=== PATIENT | female | born 1980 | race Caucasian/White ===

== ENCOUNTER 2018-12-27 08:07 | Day surgery (SDC) | payer MEDICAID ==
[~2018-12-27 08:07] MED LIST: Lactated Ringers 1,000 ML IV SCH; Lidocaine 1%/Sod Bicarbonate in NS 8.4% 1 ML Syringe IDERM PRN; Sodium Chloride 0.9% 10 ML Syringe FLUSH PRN
--- NOTE | 2018-12-27 08:39 | PCM.PREANE ---
Preanesthetic Assessment - Procedure Proposed Procedure: removal of hardware left foot - Anesthesia/Transfusion/Family Hx Anesthesia History: Prior Anesthesia Without Reaction Family History of Anesthesia Reaction: No Transfusion History: No Prior Transfusion(s) - Review of Systems General: No Symptoms Pulmonary: No Symptoms Cardiovascular: No Symptoms Gastrointestinal: No Symptoms Neurological: Seizure (none for a year) Other: Reports: Diabetes - Physical Assessment NPO Status Date: 12/26/18 NPO Status Time: 23:50 Pulse: 81 O2 Sat by Pulse Oximetry: 95 Respiratory Rate: 16 Blood Pressure: 157/89 Temperature: 96.8 F Height: 5 ft 6 in Weight: 124 kg ASA Class: 2 Mental Status: Alert & Oriented x3 Airway Class: Mallampati = 1 Dentition: Reports: Dentures (upper) Thyro-Mental Finger Breadths: 3 Mouth Opening Finger Breadths: 3 ROM/Head Extension: Full Lungs: Clear to Auscultation, Normal Respiratory Effort Cardiovascular: Regular Rate, Regular Rhythm - Allergies Allergies/Adverse Reactions: Allergies Allergy/AdvReac Type Severity Reaction Status Date / Time bee venom protein (honey bee) Allergy Cannot Verified 12/26/18 14:02 Remember ibuprofen Allergy Cannot Verified 12/26/18 14:02 [From DayQuil Sinus Remember Pressure/Pain] pseudoephedrine Allergy Cannot Verified 12/26/18 14:02 [From DayQuil Sinus Remember Pressure/Pain] - Blood Blood Available: No - Acknowledgements Anesthesia Type Planned: MAC Pt an Appropriate Candidate for the Planned Anesthesia: Yes Alternatives and Risks of Anesthesia Discussed w Pt/Guardian: Yes Pt/Guardian Understands and Agrees with Anesthesia Plan: Yes PreAnesthesia Questionnaire HEENT History: Reports: Allergic Rhinitis, Other (See Below) Other HEENT History: has dentures Cardiovascular History: Reports: None Respiratory History: Reports: Asthma (has not had problems in over 5 years- no inhaler use), Other (See Below) Other Respiratory History: pleural effusion Gastrointestinal History: Reports: None PHARMACY CLINICAL SPECIALIST History: Reports: Other (See Below) Other OB/BYN History: vaginosis, adenomyosis, endometriosis, nipple discharge Musculoskeletal History: Reports: Other (See Below) Other Musculoskeletal History: degenerative disc disease Neurological History: Reports: Migraines, Seizure Psychiatric History: Reports: Addiction, Depression Endocrine/Metabolic History: Reports: Diabetes, Type II Hematologic History: Reports: None Immunologic History: Reports: None Oncologic (Cancer) History: Reports: None - Past Surgical History Head Surgeries/Procedures: Reports: None HEENT Surgical History: Reports: Tonsillectomy Cardiovascular Surgical History: Reports: None Respiratory Surgical History: Reports: None GI Surgical History: Reports: Colonoscopy Female Surgical History: Reports: Hysterectomy, Oophorectomy Endocrine Surgical History: Reports: None Neurological Surgical History: Reports: None Musculoskeletal Surgical History: Reports: Other (See Below) Other Musculoskeletal Surgeries/Procedures:: , bilateral foot surgery Oncologic Surgical History: Reports: None - SUBSTANCE USE Smoking Status *Q: Former Smoker Tobacco Use Within Last Twelve Months: Cigarettes, Other (See Below) (quit vaping in october 2018) Second Hand Smoke Exposure: No Days Per Week of Alcohol Use: 1 (seldom) Recreational Drug Use History: Yes Recreational Drug Type: Reports: Marijuana/Hashish (3 weeks ago) - HOME MEDS Home Medications: Home Meds Estrogens, Conjugated [Premarin] 1.25 mg PO DAILY 12/26/18 [History] metFORMIN HCl [Metformin HCl] 1,000 mg PO BID 12/26/18 [History] - CURRENT (IN HOUSE) MEDS Current Meds: Current Medications Lactated Ringer's (Ringers, Lactated) 1,000 mls @ 125 mls/hr IV ASDIRECTED KIM Stop: 12/27/18 23:00 Lidocaine/Sodium Bicarbonate (Buffered Lidocaine 1% In Ns 8.4%) 0.25 ml IDERM ONETIME PRN PRN Reason: Prior to IV Start Stop: 12/27/18 18:00 Sodium Chloride (Saline Flush) 10 ml FLUSH ASDIRECTED PRN PRN Reason: Keep Vein Open Stop: 12/27/18 18:00
[2018-12-27] MEDS ORDERED: Propofol 200 MG/20 ML SDV ONE ×3 (08:46→11:16)
[2018-12-27] MEDS ORDERED: ceFAZolin 1 GM Vial ONE ×2 (08:47)
[2018-12-27] MEDS ORDERED: Lidocaine 1% 2 ML ONE ×2 (08:47)
[2018-12-27] MEDS ORDERED: Midazolam 1 MG/ML 2 ML SDV ONE ×2 (08:50→10:46)
[2018-12-27] MEDS ORDERED: fentaNYL 100 MCG/2 ML SDV ONE (08:51)
[2018-12-27] MEDS ORDERED: Bupivacaine 0.5% 30 ML SDV ONE (09:42)
[2018-12-27] MEDS ORDERED: Lidocaine 1% 30 ML SDV ONE (09:42)
[2018-12-27] MEDS ORDERED: Ketorolac 30 MG/ML SDV ONE (11:21)
--- NOTE | 2018-12-27 11:40 | PCM.OPNOTE ---
- General Post-Op/Procedure Note Date of Surgery/Procedure: 12/27/18 Operative Procedure(s): Removal of Retained Orthopedic Hardware, screws, LEFT heel Pre Op Diagnosis: Painful/Symptomatic Retained Orthopedic Hardware, LEFT heel Post-Op Diagnosis: Same Anesthesia Technique: Local, MAC Primary Surgeon: Chuck Lopez II Anesthesia Provider: Madison Trevizo Complications: None Condition: Good Free Text/Narrative:: Patient left the OR for recovery with vital signs stable & vascular status intact to digits 1-5 LEFT foot/ankle.
--- NOTE | 2018-12-27 11:42 | PCM48HPAN ---
Post Anesthesia Note - EVALUATION WITHIN 48HRS OF ANESTHETIC Vital Signs in Normal Range: Yes Patient Participated in Evaluation: Yes Respiratory Function Stable: Yes Airway Patent: Yes Cardiovascular Function Stable: Yes Hydration Status Stable: Yes Pain Control Satisfactory: Yes Nausea and Vomiting Control Satisfactory: Yes Mental Status Recovered: Yes Pulse Rate: 94 SaO2: 94 Resp Rate: 17 Temperature: 36.0 C Blood Pressure: 108/49 Pulse Rate: 94
--- NOTE | 2018-12-27 12:23 | CR ---
Left ankle: Single mortise view of the left ankle was obtained utilizing C-arm device. Comparison: No previous study. Ankle mortise is symmetric. No opaque hardware or other abnormality is seen. Fluoroscopy time given as 1.1 seconds. Impression: 1. Findings as noted above. Diagnostic code #1
--- NOTE | 2018-12-27 17:46 | OR ---
DATE OF OPERATION: 12/27/2018 SURGEON: Chuck Lopez II, DPM LOCATION: [facility]. ANESTHESIA: MAC with local block about the left heel. ANESTHESIA PROVIDER: Madison Trevizo CRNA. HEMOSTASIS: Left pneumatic ankle tourniquet at 250 mmHg pressure for 20 minutes. PREOPERATIVE DIAGNOSIS: Painful symptomatic retained orthopedic hardware, left heel. POSTOPERATIVE DIAGNOSIS: Painful symptomatic retained orthopedic hardware, left heel. OPERATION PERFORMED: Removal of retained orthopedic hardware, screws, left heel. DESCRIPTION OF PROCEDURE: Upon arrival on admission to the hospital, the patient was examined and cleared for surgery by the assigned anesthesia provider. IV access was obtained in the preoperative area, after which the patient was given prophylactic antibiotics consisting of 3 g of Ancef IV piggyback. The patient was then brought to the OR via gurney and left on the gurney in the supine position. She was then, after being sedated, moved to a right lateral decubitus position. The patient was given a combination of sedations and then when adequately sedated received 10 mL of a 1:1 mixture of 1% lidocaine plain and 0.5% Marcaine plain in the form of local infiltrative block about the left heel. The left lower extremity was wrapped with cotton Webril padding above the ankle joint for a nonsterile pneumatic ankle tourniquet, which was then draped with a sterile drape. Left lower extremity was then prepped and draped in the usual aseptic manner. Left lower extremity was then elevated and exsanguinated with the use of an Esmarch bandage before inflating the left pneumatic ankle tourniquet to 250 mmHg pressure. The Esmarch bandage was removed and attention was then directed to the posterior inferolateral aspect of the left heel where there was previous incision site for screw placement for a calcaneal slide osteotomy. Another incision paralleling that of the skin was then created from dorsal to plantar, about the same area posterolateral aspect of the left heel. This was a controlled depth skin incision measuring approximately 3 cm and it was taken down to the level of the subcutaneous structures with care taken to retract all vital neurovascular structures within the area as well as cauterize or ligate all superficial bleeders as deemed necessary. Continuous soft tissue dissection was taken down to the level of the screw heads and a 6.0 mm Arthrex screw was utilized to back out 2 screws measuring 40 and 45 mm in length. The operative site was then x-rayed with intraoperative fluoroscopy and there were no further metallic objects or screws within her left heel. The wound was then copiously lavaged with sterile saline solution and a 3-0 Vicryl was utilized to close the subcuticular deep layer while 4-0 Prolene was utilized to close the skin. Postoperative anesthesia consisted of an additional 20 mL of 0.5% Marcaine plain. Dressings were then consisted of Betadine-soaked Adaptic gauze, 4 x 4 gauze, Dillan, Kerlix, and an Adiel bandage. Upon completion of the surgery, left pneumatic ankle tourniquet was deflated and it was noted that digits 1 through 5 of the left foot became pink indicating normal vascular perfusion return. The patient tolerated the procedure and anesthesia well and left the OR for recovery with vital signs being stable and vascular status intact to digits 1 through 5 of the left lower extremity with no apparent complications. In recovery, the patient received written and oral postop instructions with postoperative pain medication. The patient will ambulate partial weightbearing with an immobilization boot for her left foot and ankle. Estimated blood loss was this procedure was 5 mL and considered negligible. ESTIMATED BLOOD LOSS: [facility] /[id number]
== END 2018-12-27 12:54 | disposition home or self-care (01) ==
LOC: JD.SDS 08:07
PROVIDERS: ATTEND Podiatrist Foot & Ankle Surgery
DX: T84.84XA Pain due to internal orthopedic prosthetic devices, implants and grafts, initial encounter (principal); E11.9 Type 2 diabetes mellitus without complications; J45.909 Unspecified asthma, uncomplicated; E66.9 Obesity, unspecified; Z68.42 Body mass index [BMI] 45.0-49.9, adult; F41.9 Anxiety disorder, unspecified; F32.9 Major depressive disorder, single episode, unspecified; Z87.891 Personal history of nicotine dependence; Z79.84 Long term (current) use of oral hypoglycemic drugs; Z79.899 Other long term (current) drug therapy; Z88.8 Allergy status to other drugs, medicaments and biological substances; Z88.6 Allergy status to analgesic agent; Z91.030 Bee allergy status
CPT/HCPCS: 20680; 76000; 82962; J0690; J1885; J2001; J2250; J2704; J3010; J3490; J7120; 01480

== ENCOUNTER 2019-03-25 14:59 | Emergency (ER) | payer MEDICAID ==
--- NOTE | 2019-03-25 15:24 | EDM.PDOC ---
ED HPI GENERAL MEDICAL PROBLEM - General Chief Complaint: Lower Extremity Injury/Pain Stated Complaint: L FOOT INJURY Time Seen by Provider: 03/25/19 15:15 Source of Information: Reports: Patient History Limitations: Reports: No Limitations - History of Present Illness INITIAL COMMENTS - FREE TEXT/NARRATIVE: 38-year-old female presents to the ED complaining of left calcaneus and left ankle pain. Patient states while standing at work last night working at [employer] she felt a pop to the left heel and developed increasing pain to the left heel with weightbearing. She has a history of surgery to the calcaneus and foot requiring 2 plates 11 screws. She states this past November she had 2 screws removed from her heel. She been doing well up until yesterday. She utilizes crutches to ambulate into the ED today due to increasing pain to the heel with weightbearing. She denies any additional complaints. Left Feet Pain Score (Numeric/FACES): 8 - Related Data Allergies Allergy/AdvReac Type Severity Reaction Status Date / Time bee venom protein (honey bee) Allergy Cannot Verified 12/28/18 18:30 Remember ibuprofen Allergy Cannot Verified 12/28/18 18:30 [From DayQuil Sinus Remember Pressure/Pain] pseudoephedrine Allergy Cannot Verified 12/28/18 18:30 [From DayQuil Sinus Remember Pressure/Pain] Home Meds: Home Meds Estrogens, Conjugated [Premarin] 1.25 mg PO DAILY 12/26/18 [History] metFORMIN HCl [Metformin HCl] 1,000 mg PO BID 12/26/18 [History] Ibuprofen 1 tab PO QID PRN 12/28/18 [History] Past Medical History HEENT History: Reports: Allergic Rhinitis, Impaired Vision, Other (See Below) Other HEENT History: has dentures Cardiovascular History: Reports: None Respiratory History: Reports: Asthma, Other (See Below) Other Respiratory History: pleural effusion Gastrointestinal History: Reports: Chronic Diarrhea COAT JOINER History: Reports: Other (See Below) Other COAT JOINER History: vaginosis, adenomyosis, endometriosis, nipple discharge Musculoskeletal History: Reports: Other (See Below) Other Musculoskeletal History: degenerative disc disease Neurological History: Reports: Migraines, Seizure Psychiatric History: Reports: Addiction, Depression Endocrine/Metabolic History: Reports: Diabetes, Type II Hematologic History: Reports: None Immunologic History: Reports: None Oncologic (Cancer) History: Reports: None - Infectious Disease History Infectious Disease History: Reports: Chicken Pox, MRSA - Past Surgical History Head Surgeries/Procedures: Reports: None HEENT Surgical History: Reports: Oral Surgery, Tonsillectomy Cardiovascular Surgical History: Reports: None Respiratory Surgical History: Reports: None GI Surgical History: Reports: Colonoscopy Female Surgical History: Reports: Hysterectomy, Oophorectomy Endocrine Surgical History: Reports: None Neurological Surgical History: Reports: None Musculoskeletal Surgical History: Reports: Other (See Below) Other Musculoskeletal Surgeries/Procedures:: , bilateral foot surgery Oncologic Surgical History: Reports: None Social & Family History - Family History Family Medical History: Noncontributory - Caffeine Use Caffeine Use: Reports: Coffee, Energy Drinks Review of Systems - Review of Systems Review Of Systems: ROS reveals no pertinent complaints other than HPI. ED EXAM, GENERAL - Physical Exam Exam: See Below Exam Limited By: No Limitations General Appearance: Alert, WD/WN, No Apparent Distress Ears: Hearing Grossly Normal Nose: Normal Inspection Throat/Mouth: Normal Voice, No Airway Compromise Neck: Normal Inspection, Supple Respiratory/Chest: No Respiratory Distress, No Accessory Muscle Use Cardiovascular: Normal Peripheral Pulses, Regular Rate, Rhythm Peripheral Pulses: 2+: Posterior Tibial (L) Extremities: Normal Inspection, Other (Pinpoint tenderness to the left calcaneus and also to the inferior border of the left lateral malleolus. No pain along the metatarsals or phalanges. No pain along the tibia/fibula.) Neurological: Alert, Oriented, CN II-XII Intact, Normal Cognition, No Motor/ Sensory Deficits Psychiatric: Normal Affect, Normal Mood Skin Exam: Warm, Dry, Intact, Normal Color. No: Ecchymosis Course - Vital Signs Last Recorded V/S: Last Vital Signs Temp 96.9 F 03/25/19 15:17 Pulse 91 03/25/19 15:17 Resp 20 03/25/19 15:17 BP 152/99 H 03/25/19 15:17 Pulse Ox 100 03/25/19 15:17 - Orders/Labs/Meds Orders: Active Orders 24 hr Category Date Time Status Ankle Min 3V Lt [CR] Stat Exams 03/25/19 15:19 Taken Calcaneous Lt [CR] Stat Exams 03/25/19 15:19 Taken DME for Discharge [COMM] Stat Oth 03/25/19 15:20 Ordered - Re-Assessments/Exams Free Text/Narrative Re-Assessment/Exam: Will obtain x-rays of the left ankle and calcaneus. Xrays reviewed with no obvious acute bony abnormalities. Final interpretation is pending. Will discharge patient home with crutches and followup with Podiatry in the next 7 to 10 days. Return precautions were discussed with the patient. She had no further questions or concerns. Departure - Departure Time of Disposition: 16:39 Disposition: DC/Tfer to [facility] Condition: Good Clinical Impression: Calcaneal spur of left foot Ankle pain, left Qualifiers: Chronicity: acute Qualified Code(s): M25.572 - Pain in left ankle and joints of left foot - Discharge Information Instructions: Crutch Use, Adult, [id number], Heel Spur, Joint Pain, Easy-to- Read Referrals: Lou Mancilla PA-C [Primary Care Provider] - Chuck Lopez II, MIANM [Physician] - Forms: ED Department Discharge, ED Return to Work/School Form Additional Instructions: You're to be nonweightbearing toe-touch only for balance. Utilize crutches to ambulate. Elevate when able to reduce any swelling and pain. May apply ice to affected area 3-4 times a day, 20 minutes in duration, do not apply ice directly on the skin. Refrain from any activities that cause worsening discomfort. May utilize Tylenol since you are allergic ibuprofen. Call Dr. Lopez's office to schedule an appt to be evaluated in the next 7 to 10 days. Please return to the E. D. if you develop any new or worsening symptoms. - My Orders Last 24 Hours: My Active Orders 03/25/19 15:19 Ankle Min 3V Lt [CR] Stat Calcaneous Lt [CR] Stat 03/25/19 15:20 DME for Discharge [COMM] Stat - Assessment/Plan Last 24 Hours: My Active Orders 03/25/19 15:19 Ankle Min 3V Lt [CR] Stat Calcaneous Lt [CR] Stat 03/25/19 15:20 DME for Discharge [COMM] Stat
--- NOTE | 2019-03-26 12:13 | CR ---
Left calcaneus: Two views of the left calcaneus were obtained. Comparison: No previous study. Lucent line is seen within the calcaneus presumably from previous fracture. Finding could also represent previous surgery. This appears to be healed. Lucent tracts are seen crossing this lucent line compatible with old orthopedic hardware which has been removed. Small plantar spur is seen. Impression: 1. Incidental findings. Nothing acute is seen. Diagnostic code #2
--- NOTE | 2019-03-26 12:13 | CR ---
Left ankle: Four views of the left ankle were obtained. Comparison: No prior foot or ankle exam. Previous surgery is noted within the midfoot. Small plantar spur is seen. Old fracture with lucent tracks from previous orthopedic hardware are seen within the calcaneus. Ankle mortise is symmetric. No acute fracture or dislocation is seen. Impression: 1. Incidental findings. Nothing acute is appreciated. Diagnostic code #2
== END 2019-03-25 16:55 ==
LOC: JD.ED 14:59
DX: M77.32 Calcaneal spur, left foot (principal); J45.909 Unspecified asthma, uncomplicated; F32.9 Major depressive disorder, single episode, unspecified; E11.9 Type 2 diabetes mellitus without complications; Z91.030 Bee allergy status; Z88.8 Allergy status to other drugs, medicaments and biological substances; Z79.84 Long term (current) use of oral hypoglycemic drugs; Z79.899 Other long term (current) drug therapy
CPT/HCPCS: 73610-26-LT; 73610-LT; 73650-26-LT; 73650-LT; 99282; 99283-25

== ENCOUNTER 2019-04-26 18:38 | Emergency (ER) | payer MEDICAID ==
[2019-04-26] MEDS ORDERED: Sodium Chloride 0.9% 1,000 ML IV STA (19:42)
[2019-04-26] MEDS ORDERED: Sodium Chloride 0.9% 10 ML Syringe FLUSH PRN (19:42)
[2019-04-26] MEDS ORDERED: Metoclopramide 10 MG/2 ML SDV IVPUSH ONE (19:42)
[2019-04-26] MEDS ORDERED: HYDROmorphone 0.5 MG/0.5 ML Syringe IVPUSH ONE (20:59)
--- NOTE | 2019-04-26 21:11 | EDM.PDOC ---
ED HPI GENERAL MEDICAL PROBLEM - General Chief Complaint: Genitourinary Problem Stated Complaint: VAGINAL PAIN Time Seen by Provider: 04/26/19 19:27 Source of Information: Reports: Patient History Limitations: Reports: No Limitations - History of Present Illness INITIAL COMMENTS - FREE TEXT/NARRATIVE: The patient presents with left lower abdominal pain, rectal pain and vaginal pain. This all started a couple days ago. She has some nausea and vomiting. She has no fever or chills. She has issues with her left foot. She had surgery in [facility] and she had more pain. She saw Dr Lopez and he removed some hardware. She still has pain and he is looking into other causes. She is on tramadol for the pain. She has not had a good bowel movement for about 3 days. She had one today and she had some blood when she wiped. She has no chest pain or shortness fo breath. She has some pressure when she urinates. Onset: Gradual Duration: Day(s): Location: Reports: Abdomen Quality: Reports: Sharp Severity: Moderate Improves with: Reports: None Worsens with: Reports: None Associated Symptoms: Reports: Nausea/Vomiting. Denies: Chest Pain, Cough, Fever /Chills, Headaches, Shortness of Breath - Related Data Allergies Allergy/AdvReac Type Severity Reaction Status Date / Time bee venom protein (honey bee) Allergy Severe Airway Verified 04/26/19 19:27 Tightness pseudoephedrine Allergy Mild Drowsiness Verified 04/26/19 19:27 [From DayQuil Sinus Pressure/Pain] Home Meds: Home Meds Estrogens, Conjugated [Premarin] 1.25 mg PO DAILY 12/26/18 [History] metFORMIN HCl [Metformin HCl] 1,000 mg PO BID 12/26/18 [History] Ibuprofen 1 tab PO QID PRN 12/28/18 [History] Hydrocodone/Acetaminophen [Hydrocodon-Acetaminophen 5-325] 1 - 2 each PO Q6HR PRN #20 tablet 04/26/19 [Rx] Tamsulosin HCl [Flomax] 0.4 mg PO DAILY #7 cap.er.24h 04/26/19 [Rx] Past Medical History HEENT History: Reports: Allergic Rhinitis, Impaired Vision, Other (See Below) Other HEENT History: has dentures Cardiovascular History: Reports: None Respiratory History: Reports: Asthma, Other (See Below) Other Respiratory History: pleural effusion Gastrointestinal History: Reports: Chronic Diarrhea GEOPHYSICAL 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 SURVEYOR History: Reports: Other (See Below) Other GEOPHYSICAL PROSPECTING SURVEYOR History: vaginosis, adenomyosis, endometriosis, nipple discharge Musculoskeletal History: Reports: Other (See Below) Other Musculoskeletal History: degenerative disc disease Neurological History: Reports: Migraines, Seizure Psychiatric History: Reports: Addiction, Depression Endocrine/Metabolic History: Reports: Diabetes, Type II Hematologic History: Reports: None Immunologic History: Reports: None Oncologic (Cancer) History: Reports: None - Infectious Disease History Infectious Disease History: Reports: Chicken Pox, MRSA - Past Surgical History Head Surgeries/Procedures: Reports: None HEENT Surgical History: Reports: Oral Surgery, Tonsillectomy Cardiovascular Surgical History: Reports: None Respiratory Surgical History: Reports: None GI Surgical History: Reports: Appendectomy, Colonoscopy Female Surgical History: Reports: Hysterectomy, Oophorectomy Endocrine Surgical History: Reports: None Neurological Surgical History: Reports: None Musculoskeletal Surgical History: Reports: Other (See Below) Other Musculoskeletal Surgeries/Procedures:: , bilateral foot surgery Oncologic Surgical History: Reports: None Social & Family History - Family History Family Medical History: Noncontributory - Tobacco Use Smoking Status *Q: Never Smoker - Caffeine Use Caffeine Use: Reports: Coffee, Energy Drinks - Recreational Drug Use Recreational Drug Use: Yes Recreational Drug Type: Reports: Marijuana/Hashish ED ROS GENERAL - Review of Systems Review Of Systems: See Below Constitutional: Reports: No Symptoms HEENT: Reports: No Symptoms Respiratory: Reports: No Symptoms Cardiovascular: Reports: No Symptoms Endocrine: Reports: No Symptoms GI/Abdominal: Reports: Abdominal Pain, Bloody Stool, Constipation, Nausea, Vomiting. Denies: Diarrhea : Reports: No Symptoms Musculoskeletal: Reports: No Symptoms ED EXAM, GI/ABD - Physical Exam Exam: See Below Exam Limited By: No Limitations General Appearance: Alert, No Apparent Distress Ears: Normal External Exam Nose: Normal Inspection Head: Atraumatic, Normocephalic Neck: Normal Inspection Respiratory/Chest: No Respiratory Distress, Lungs Clear, Normal Breath Sounds Cardiovascular: Regular Rate, Rhythm, No Edema, No Murmur GI/Abdominal Exam: Soft, No Organomegaly, No Mass, Tender (Moderate tenderness to the left lower abdomen) Rectal (Female) Exam: Heme - Stool, Hemorrhoids, Other (Internal hemarrhoid palpated and no blood on exam and with the guiac) Extremities: Normal Inspection Neurological: Alert, Oriented, No Motor/Sensory Deficits Course - Vital Signs Last Recorded V/S: Last Vital Signs Temp 98.3 F 04/26/19 19:23 Pulse 100 04/26/19 19:23 Resp 16 04/26/19 19:23 BP 154/127 H 04/26/19 19:23 Pulse Ox 95 04/26/19 19:23 - Orders/Labs/Meds Orders: Active Orders 24 hr Category Date Time Status Hemoccult [Fecal Occult Blood Collection] [RC] Care 04/26/19 21:12 Active ASDIRECTED Peripheral IV Care [RC] . DIRECTED Care 04/26/19 19:42 Active Abdomen Pelvis w Cont [CT] Stat Exams 04/26/19 20:58 Taken Abdomen Series w Chest 1V [CR] Stat Exams 04/26/19 19:42 Taken Sodium Chloride 0.9% [Saline Flush] Med 04/26/19 19:42 Active 10 ml FLUSH ASDIRECTED PRN ED Antiemetic Medication Reflex [OM.PC] Stat Oth 04/26/19 19:42 Ordered Peripheral IV Insertion Adult [OM.PC] Stat Oth 04/26/19 19:42 Ordered Medication Orders Sodium Chloride (Saline Flush) 10 ml FLUSH ASDIRECTED PRN PRN Reason: Keep Vein Open Last Admin: 04/26/19 19:56 Dose: 10 ml Labs: Laboratory Tests 04/26/19 04/26/19 04/26/19 Range/Units 19:58 19:58 20:25 WBC 13.05 H (3.98-10.04) K/mm3 RBC 4.74 (3.98-5.22) M/mm3 Hgb 13.7 (11.2-15.7) gm/L Hct 42.4 (34.1-44.9) % MCV 89.5 (79.4-94.8) fl MCH 28.9 (25.6-32.2) pg MCHC 32.3 (32.2-35.5) g/dl RDW Std Deviation 39.5 (36.4-46.3) fL Plt Count 295 (182-369) K/mm3 MPV 10.0 (9.4-12.3) fl Neut % (Auto) 57.2 (34.0-71.1) % Lymph % (Auto) 33.3 (19.3-51.7) % [place] % (Auto) 7.7 (4.7-12.5) % Eos % (Auto) 1.4 (0.7-5.8) Baso % (Auto) 0.2 (0.1-1.2) % Neut # (Auto) 7.46 H (1.56-6.13) K/mm3 Lymph # (Auto) 4.35 H (1.18-3.74) K/mm3 [place] # (Auto) 1.01 H (0.24-0.36) K/mm3 Eos # (Auto) 0.18 (0.04-0.36) K/mm3 Baso # (Auto) 0.02 (0.01-0.08) K/mm3 Sodium 140 (136-145) mEq/L Potassium 3.9 (3.5-5.1) mEq/L Chloride 101 (98-107) mEq/L Carbon Dioxide 27 (21-32) mEq/L Anion Gap 15.9 H (5-15) BUN 13 (7-18) mg/dL Creatinine 1.0 (0.55-1.02) mg/dL Est Cr Clr Drug Dosing 70.71 mL/min Estimated GFR (MDRD) > 60 (>60) mL/min BUN/Creatinine Ratio 13.0 L (14-18) Glucose 134 H (74-106) mg/dL Calcium 9.9 (8.5-10.1) mg/dL Total Bilirubin 0.3 (0.2-1.0) mg/dL AST 22 (15-37) U/L ALT 35 (14-59) U/L Alkaline Phosphatase 99 (46-116) U/L Total Protein 7.6 (6.4-8.2) g/dl Albumin 3.8 (3.4-5.0) g/dl Globulin 3.8 gm/dL Albumin/Globulin Ratio 1.0 (1-2) Urine Color Yellow (Yellow) Urine Appearance Clear (Clear) Urine pH 6.0 (5.0-8.0) Ur Specific [place] > or = 1.030 (1.005-1.030) Urine Protein Trace H (Negative) Urine Glucose (UA) Negative (Negative) Urine Ketones Negative (Negative) Urine Occult Blood 1+ H (Negative) Urine Nitrite Negative (Negative) Urine Bilirubin Negative (Negative) Urine Urobilinogen 0.2 (0.2-1.0) Ur Leukocyte Esterase Negative (Negative) Urine RBC 0-5 (0-5) /hpf Urine WBC 0-5 (0-5) /hpf Ur Squamous Epith Cells 0-5 (0-5) /hpf Urine Bacteria Few (FEW) /hpf Urine Mucus Moderate H (FEW) /hpf Meds: Medications Generic Name Dose Route Start Last Admin Trade Name Freq PRN Reason Stop Dose Admin Sodium Chloride 10 ml 04/26/19 19:42 04/26/19 19:56 Saline Flush FLUSH 10 ml ASDIRECTED PRN Administration Keep Vein Open Discontinued Medications Generic Name Dose Route Start Last Admin Trade Name Freq PRN Reason Stop Dose Admin Diatrizoate Meglum/Diatrizoate Sod 90 ml 04/26/19 22:30 04/26/19 22:32 Gastrografin 37% PO 04/26/19 22:31 90 ml ONETIME ONE Administration Hydromorphone HCl 0.5 mg 04/26/19 20:59 04/26/19 21:03 Dilaudid IVPUSH 04/26/19 21:00 0.5 mg ONETIME ONE Administration Sodium Chloride 1,000 mls @ 1,000 mls/hr 04/26/19 19:42 04/26/19 19:55 Normal Saline IV 04/26/19 20:41 1,000 mls/hr .BOLUS STA Administration Iohexol 100 ml 04/26/19 22:31 04/26/19 22:32 Omnipaque-300 IVPUSH 04/26/19 22:32 100 ml ONETIME ONE Administration Metoclopramide HCl 10 mg 04/26/19 19:42 04/26/19 19:56 Reglan IVPUSH 04/26/19 19:43 10 mg ONETIME ONE Administration - Re-Assessments/Exams Free Text/Narrative Re-Assessment/Exam: 04/26/19 21:12 I ordered an IV NS 1L bolus, reglan 10mg IV, labs, and UA. Her WBC was elevated at 13.05. Her CMP looks good. Her Hgb was normal. Her UA shows no UTI. She had an internal hemorrhoid on exam. I am worried she may have diverticulitis with the elevated WBC and pain. I ordered dilaudid 0.5mg IV and a CT of her abdomen and pelvis with IV and oral contrast. 04/26/19 23:[address] shows a 5mm calculus at the left UVJ with mild left hydroureteronephrosis. Hepatic statosis. She feels better. I will get her on some hydrocodone and flomax. Departure - Departure Time of Disposition: 23:05 Disposition: Home, Self-Care 01 Condition: Good Clinical Impression: Kidney stone, Ureteral colic, Ureteral calculus, left - Discharge Information *PRESCRIPTION DRUG MONITORING PROGRAM REVIEWED*: Not Applicable *COPY OF PRESCRIPTION DRUG MONITORING REPORT IN PATIENT AMERICO: Not Applicable Prescriptions: Hydrocodone/Acetaminophen [Hydrocodon-Acetaminophen 5-325] 1 - 2 each PO Q6HR PRN #20 tablet PRN Reason: Pain Tamsulosin HCl [Flomax] 0.4 mg PO DAILY #7 cap.er.24h Referrals: Lou Mancilla PA-C [Primary Care Provider] - 1 Week Forms: ED Department Discharge Additional Instructions: Drink plenty of fluids. Take the flomax daily. Take the hydrocodone as needed for pain. Please return if you are worse. Follow up with your doctor if you did not pass the stone in 1 week. - My Orders Last 24 Hours: My Active Orders 04/26/19 19:42 Peripheral IV Care [RC] . DIRECTED Abdomen Series w Chest 1V [CR] Stat Sodium Chloride 0.9% [Saline Flush] 10 ml FLUSH ASDIRECTED PRN ED Antiemetic Medication Reflex [OM.PC] Stat Peripheral IV Insertion Adult [OM.PC] Stat 04/26/19 20:58 Abdomen Pelvis w Cont [CT] Stat 04/26/19 21:12 Hemoccult [Fecal Occult Blood Collection] [RC] ASDIRECTED - Assessment/Plan Last 24 Hours: My Active Orders 04/26/19 19:42 Peripheral IV Care [RC] . DIRECTED Abdomen Series w Chest 1V [CR] Stat Sodium Chloride 0.9% [Saline Flush] 10 ml FLUSH ASDIRECTED PRN ED Antiemetic Medication Reflex [OM.PC] Stat Peripheral IV Insertion Adult [OM.PC] Stat 04/26/19 20:58 Abdomen Pelvis w Cont [CT] Stat 04/26/19 21:12 Hemoccult [Fecal Occult Blood Collection] [RC] ASDIRECTED
[2019-04-26] MEDS ORDERED: Diatrizoate Meglumine/Diatrizoate Sodium 37% 120 ML Bottle PO ONE (22:30)
[2019-04-26] MEDS ORDERED: Iohexol 647 MG/ML 100 ML Bottle IVPUSH ONE (22:31)
--- NOTE | 2019-04-27 07:21 | CR ---
Abdominal series: Supine and upright views of the abdomen were obtained as well as frontal view of the chest. Comparison: Prior chest x-ray of 10/12/18. Heart size and mediastinum are normal. Lungs are clear. No free air is seen. Bowel gas pattern is normal. Calcifications are seen within the pelvis most likely representing phleboliths. Bony structures show nothing acute. Impression: 1. Incidental findings. Nothing acute is seen at abdominal series. Diagnostic code #2
--- NOTE | 2019-04-27 08:18 | CT ---
CT abdomen and pelvis Technique: Multiple axial sections were obtained from above the dome of the diaphragm inferiorly through the pubic symphysis. Intravenous and oral contrast was given. Delayed images were obtained through the pelvis. Comparison: Prior abdominal series performed on 04/26/19 and prior renal stone CT exam of 12/28/18. Left ureter and left kidney collecting system is dilated. These findings are caused by an obstructing stone within the distal left ureter measuring approximately 5.8 mm. Kidneys show symmetric contrast enhancement with no additional abnormal calcifications. Fatty infiltration is seen within the liver. Visualized lung bases showed nothing acute. Spleen appears within normal limits. Adrenal glands show no nodule. Pancreas is normal. Gallbladder contains no calcified gallstones. Aorta shows no aneurysm. No retroperitoneal adenopathy or mesenteric abnormalities are seen. No pelvic mass or adenopathy is seen. No free fluid or inflammatory change is seen. Bone window settings were reviewed which appear within normal limits for the patient's age. Incidental note of minimal fat-containing umbilical hernia. Delayed images show no significant contrast within the bladder likely representing dehydration. Impression: 1. 5.8 mm obstructing stone within the distal left ureter causing proximal hydronephrosis. 2. Fatty infiltration within the liver. 3. Lack of contrast within the bladder on delayed images suggesting dehydration. Diagnostic code #3 I agree with preliminary report from [facility], finalized on 04/26/19, 11:51 PM Central Time
== END 2019-04-26 23:28 | disposition home or self-care (01) ==
LOC: JD.ED 18:38
DX: N13.2 Hydronephrosis with renal and ureteral calculous obstruction (principal); J45.909 Unspecified asthma, uncomplicated; F32.9 Major depressive disorder, single episode, unspecified; E11.9 Type 2 diabetes mellitus without complications; Z91.030 Bee allergy status; Z79.899 Other long term (current) drug therapy
CPT/HCPCS: 36415; 74022; 74177; 80053; 81001; 85025; 96361; 96374; 96375; 99284; J1170; J2765; J7040; Q9963; Q9967

== ENCOUNTER 2019-10-04 12:27 | Emergency (ER) | payer MEDICAID ==
[2019-10-04] MEDS ORDERED: Ondansetron 4 MG Tab.DIS PO ONE (13:26)
--- NOTE | 2019-10-04 13:31 | EDM.PDOC ---
ED HPI GENERAL MEDICAL PROBLEM - General Chief Complaint: Respiratory Problem Stated Complaint: DIZZY AND COLD Time Seen by Provider: 10/04/19 12:58 Source of Information: Reports: Patient, RN Notes Reviewed History Limitations: Reports: No Limitations - History of Present Illness INITIAL COMMENTS - FREE TEXT/NARRATIVE: Patient is a 38-year-old female who presents to the ED for the evaluation of generalized feelings of being unwell. The patient notes for the last 3 days she has had sniffles, cough, feeling cold, and dizziness. She does note that she gets dizzy from sitting to standing, and she does have some nausea with this as well. She denies any prior history of vertigo. Patient states she is still eating and drinking okay. She has been trying to use some TheraFlu at home, this does not seem to be helping much at all. She notes a prior history of alcoholism, and she states she has been sober for 4 months, and that most of the [id number] cold medications have alcohol in them, and that all she can taste that she does not like taking these. Patient states she is not a cigarette smoker any longer, and she does use marijuana occasionally for nausea and pain control. Patient has not got a flu shot this season, and does decline at today's visit as well. Patient notes she did vomit in the shower once today , and she states that she has had a couple loose stools in the past couple days. She denies any dysuria, urinary frequency or urgency. Patient notes she is a diabetic, does take metformin, Crestor, and also Premarin. Her primary care provider is Lou Mancilla. Middle Back Pain Score (Numeric/FACES): 8 - Related Data Allergies Allergy/AdvReac Type Severity Reaction Status Date / Time bee venom protein (honey bee) Allergy Severe Airway Verified 04/26/19 19:27 Tightness pseudoephedrine Allergy Mild Drowsiness Verified 04/26/19 19:27 [From DayQuil Sinus Pressure/Pain] Home Meds: Home Meds Estrogens, Conjugated [Premarin] 1.25 mg PO DAILY 12/26/18 [History] metFORMIN HCl [Metformin HCl] 1,000 mg PO BID 12/26/18 [History] Rosuvastatin [Crestor] 5 mg PO DAILY 10/04/19 [History] Past Medical History HEENT History: Reports: Allergic Rhinitis, Impaired Vision, Other (See Below) Other HEENT History: has dentures Cardiovascular History: Reports: None Respiratory History: Reports: Asthma, Other (See Below) Other Respiratory History: pleural effusion Gastrointestinal History: Reports: Chronic Diarrhea 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: Reports: Other (See Below) Other 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: vaginosis, adenomyosis, endometriosis, nipple discharge Musculoskeletal History: Reports: Other (See Below) Other Musculoskeletal History: degenerative disc disease Neurological History: Reports: Migraines, Seizure Other Neuro History: sleep study test done and pt doesn't need tot mau seizure meds Psychiatric History: Reports: Addiction, Depression Endocrine/Metabolic History: Reports: Diabetes, Type II Hematologic History: Reports: None Immunologic History: Reports: None Oncologic (Cancer) History: Reports: None - Infectious Disease History Infectious Disease History: Reports: Chicken Pox, MRSA Other Infectious Disease History: 5-6 yrs ago diagnosed. has not been tested but has had several surgeries since - Past Surgical History Head Surgeries/Procedures: Reports: None HEENT Surgical History: Reports: Oral Surgery, Tonsillectomy Cardiovascular Surgical History: Reports: None Respiratory Surgical History: Reports: None GI Surgical History: Reports: Appendectomy, Colonoscopy Female Surgical History: Reports: Hysterectomy, Oophorectomy Endocrine Surgical History: Reports: None Neurological Surgical History: Reports: None Musculoskeletal Surgical History: Reports: Other (See Below) Other Musculoskeletal Surgeries/Procedures:: , bilateral foot surgery Oncologic Surgical History: Reports: None Social & Family History - Family History Family Medical History: Noncontributory - Tobacco Use Smoking Status *Q: Former Smoker - Caffeine Use Caffeine Use: Reports: Coffee, Soda - Alcohol Use Alcohol Use History: Yes Date of Last Drink: 05/29/19 (stopped drinking 4 months ago) Alcohol Use in Last Twelve Months: Yes Alcohol Use Frequency: Not Used in Over 4 Months - Recreational Drug Use Drug Use in Last 12 Months: Yes Recreational Drug Type: Reports: Marijuana/Hashish ED ROS GENERAL - Review of Systems Review Of Systems: See Below Constitutional: Reports: Chills, Malaise. Denies: Fever, Decreased Appetite HEENT: Reports: Rhinitis, Vertigo. Denies: Ear Pain Respiratory: Reports: Cough. Denies: Shortness of Breath Cardiovascular: Denies: Chest Pain Endocrine: Reports: No Symptoms GI/Abdominal: Reports: Diarrhea, Nausea, Vomiting. Denies: Abdominal Pain, Black Stool, Bloody Stool, Constipation Musculoskeletal: Reports: Back Pain (chronic) Skin: Reports: No Symptoms Neurological: Reports: Dizziness. Denies: Headache Psychiatric: Reports: No Symptoms Hematologic/Lymphatic: Reports: No Symptoms Immunologic: Reports: No Symptoms ED EXAM, GENERAL - Physical Exam Exam: See Below Exam Limited By: No Limitations General Appearance: Alert, WD/WN, No Apparent Distress Eye Exam: Right Eye: Nystagmus (several tics of R nystagmus), Bilateral Eye: EOMI, Normal Inspection, PERRL Ears: Normal External Exam, Normal Canal, Hearing Grossly Normal, Normal TMs Nose: Normal Inspection Throat/Mouth: Normal Inspection, Normal Lips, Normal Teeth, Normal Gums, Normal Oropharynx, Normal Voice, No Airway Compromise Head: Atraumatic, Normocephalic Neck: Normal Inspection Respiratory/Chest: No Respiratory Distress, Lungs Clear, Normal Breath Sounds, No Accessory Muscle Use, Chest Non-Tender Cardiovascular: Normal Peripheral Pulses, Regular Rate, Rhythm, No Murmur Peripheral Pulses: 3+: Radial (L), Radial (R) GI/Abdominal: Normal Bowel Sounds, Soft, Non-Tender, No Distention, No Mass Extremities: Normal Inspection, Normal Capillary Refill Neurological: Alert, Oriented, Normal Cognition, No Motor/Sensory Deficits Psychiatric: Normal Affect, Normal Mood Skin Exam: Warm, Dry, Intact, Normal Color, No Rash Course - Vital Signs Last Recorded V/S: Last Vital Signs Temp 97.8 F 10/04/19 12:45 Pulse 85 10/04/19 12:45 Resp BP 144/79 H 10/04/19 12:45 Pulse Ox 96 10/04/19 12:45 - Orders/Labs/Meds Meds: Medications Discontinued Medications Generic Name Dose Route Start Last Admin Trade Name Freq PRN Reason Stop Dose Admin Meclizine HCl 25 mg 10/04/19 13:26 10/04/19 13:44 Antivert PO 10/04/19 13:27 25 mg ONETIME ONE Administration Ondansetron HCl 4 mg 10/04/19 13:26 10/04/19 13:44 Zofran Odt PO 10/04/19 13:27 4 mg ONETIME ONE Administration - Re-Assessments/Exams Free Text/Narrative Re-Assessment/Exam: 10/04/19 13:33 Patient presents to the ED for evaluation of multiple complaints. I do believe that she may be suffering from some vertigo versus viral upper respiratory illness. I was able to reproduce the patient's dizziness on physical exam. I did order 25 mg PO meclizine, and 4 mg ODT Zofran for initial management. 10/04/19 14:15 Patient was reassessed at bedside, states that her dizziness and nausea have improved. I will discharge her home with meclizine and Zofran for management. Departure - Departure Time of Disposition: 14:15 Disposition: Home, Self-Care 01 Condition: Fair Clinical Impression: Vertigo, Nausea - Discharge Information *PRESCRIPTION DRUG MONITORING PROGRAM REVIEWED*: No *COPY OF PRESCRIPTION DRUG MONITORING REPORT IN PATIENT AMERICO: No Instructions: Benign Positional Vertigo Referrals: Lou Mancilla PA-C [Primary Care Provider] - Forms: ED Department Discharge Additional Instructions: You were evaluated in the ER today regarding your generalized feelings of being unwell, dizziness, and nausea. You're likely suffering from a viral upper respiratory illness in nature, but this is also causing the sensation of vertigo, which is attributing to dizziness and nausea. You have been provided with a prescription for meclizine, and Zofran, please take as directed. This was electronically prescribed to the [facility]. Recommend that if your symptoms are not improving much by his coming Wednesday that you present to the clinic for further evaluation of your symptoms. Please return to the ER at any time if your symptoms change or worsen.
== END 2019-10-04 14:31 | disposition home or self-care (01) ==
LOC: JD.ED 12:27
DX: R42 Dizziness and giddiness (principal); R11.0 Nausea; E11.9 Type 2 diabetes mellitus without complications; J45.909 Unspecified asthma, uncomplicated; Z79.84 Long term (current) use of oral hypoglycemic drugs; Z87.891 Personal history of nicotine dependence; Z91.030 Bee allergy status; Z88.8 Allergy status to other drugs, medicaments and biological substances
CPT/HCPCS: 99283; A9270

== ENCOUNTER 2019-12-06 21:05 | Emergency (ER) | payer MEDICAID ==
[2019-12-06] MEDS ORDERED: Orphenadrine 100 MG Tab.ER PO STA (22:08)
[2019-12-06] MEDS ORDERED: Ibuprofen 600 MG Tab PO ONE (22:08)
--- NOTE | 2019-12-06 22:13 | EDM.PDOC ---
ED HPI GENERAL MEDICAL PROBLEM - General Chief Complaint: Chest Pain Stated Complaint: ARM TINGLES CHEST PAIN Time Seen by Provider: 12/06/19 21:40 Source of Information: Reports: Patient, Other (Friend/coworker) History Limitations: Reports: No Limitations - History of Present Illness INITIAL COMMENTS - FREE TEXT/NARRATIVE: Ms. Cordoba is a very pleasant 39-year-old woman with a past history significant for suspected asthma, suspected endometriosis, alcoholism, untreated depression, and diabetes, who states that she developed tingling to her entire left upper extremity last night, 12/05/2019. She then developed sharp central chest pain around 14:00 this afternoon. The pain is constant unfortunately but occasionally gets worse. She has not identified any modifiers. No associated nausea, dyspnea, diaphoresis, or sense of impending doom. No prior similar symptoms. The patient did not take any nquj-[id number]-[id number] or home remedies to treat her symptoms prior to coming to the ED. She denies recent illness, such as fever, chills, cough, palpitations, emesis, constipation, diarrhea, abdominal pain, recent bloody bowel movements or black bowel movements, recent weight gain or weight loss, recent joint aches, headaches, or rashes. The patient takes metformin to treat her diabetes, however, she does not check her blood glucose. The patient's PCP is Dona Serra NP. The patient has not received an influenza vaccine this season, and declined an offer for one here today. Chest Pain Score (Numeric/FACES): 8 - Related Data Allergies Allergy/AdvReac Type Severity Reaction Status Date / Time bee venom protein (honey bee) Allergy Severe Airway Verified 12/06/19 21:13 Tightness pseudoephedrine Allergy Mild Drowsiness Verified 12/06/19 21:13 [From DayQuil Sinus Pressure/Pain] Home Meds: Home Meds metFORMIN HCl [Metformin HCl] 1,000 mg PO BID 12/26/18 [History] Rosuvastatin [Crestor] 5 mg PO DAILY 10/04/19 [History] Orphenadrine [Norflex] 1 tab PO Q12H PRN #14 tab.er 12/06/19 [Rx] Past Medical History HEENT History: Reports: Allergic Rhinitis, Impaired Vision, Other (See Below) ( Dentures) Cardiovascular History: Reports: High Cholesterol Respiratory History: Reports: Asthma (suspected, not tested) Genitourinary History: Reports: Renal Calculus, Urinary Incontinence (stress incontinence) 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 MIXER History: Reports: Endometriosis (suspected, not confirmed), Other (See Below) Musculoskeletal History: Reports: Back Pain, Chronic (2 DDD) Neurological History: Reports: Seizure (alcohol-related only) Psychiatric History: Reports: Addiction (alcohol), Depression (untreated) Endocrine/Metabolic History: Reports: Diabetes, Type II, Obesity/BMI 30+ - Infectious Disease History Infectious Disease History: Reports: Chicken Pox, MRSA - Past Surgical History HEENT Surgical History: Reports: Oral Surgery (dental extractions), Tonsillectomy GI Surgical History: Reports: Appendectomy Female Surgical History: Reports: Hysterectomy (complete), Tubal Ligation Musculoskeletal Surgical History: Reports: Other (See Below) (Bilateral feet fusion) Social & Family History - Family History Family Medical History: Noncontributory - Tobacco Use Smoking Status *Q: Former Smoker Years of Tobacco use: 23 Packs/Tins Daily: 2 Month/Year Tobacco Last Used: Quit 02/2019 - Caffeine Use Caffeine Use: Reports: Coffee, Soda - Alcohol Use Alcohol Use History: Yes Date/Time of Last Drink Comment: Sober since Jun 2019 - Recreational Drug Use Recreational Drug Use: Yes Drug Use in Last 12 Months: Yes Recreational Drug Type: Reports: Marijuana/Hashish (smokes 2x/wk), Methamphetamine (last snorted 2006) - Living Situation & Occupation Living situation: Reports: , with Significant Other (Fiance), with Family (Son) Occupation: Employed ([employer]) ED ROS GENERAL - Review of Systems Review Of Systems: Comprehensive ROS is negative, except as noted in HPI. GI/Abdominal: Reports: Diarrhea (chronic) ED EXAM, GENERAL - Physical Exam Exam: See Below Exam Limited By: No Limitations General Appearance: Alert, WD/WN, No Apparent Distress Eye Exam: Bilateral Eye: EOMI, Normal Inspection Ears: Normal External Exam, Hearing Grossly Normal Nose: Normal Inspection Throat/Mouth: Normal Inspection, Normal Lips, Normal Voice, No Airway Compromise Head: Atraumatic, Normocephalic Neck: Normal Inspection, Full Range of Motion Respiratory/Chest: No Respiratory Distress, Lungs Clear, Normal Breath Sounds, No Accessory Muscle Use, Other (Reproducible tenderness to the patient's sternum by direct palpation, as well as by having the patient pressed her hands together with her arms outstretched in front of her, as well as with the patient crossing either of her arms across her chest. These actions sent radiations of pain down her left upper extremity.) Cardiovascular: Normal Peripheral Pulses, Regular Rate, Rhythm, No Gallop, No JVD, No Murmur, No Rub Peripheral Pulses: 4+: Radial (L), Radial (R) GI/Abdominal: Normal Bowel Sounds, Soft, Non-Tender, No Organomegaly, No Distention, No Abnormal Bruit, No Mass (Female) Exam: Deferred Rectal (Female) Exam: Deferred Back Exam: Normal Inspection, Full Range of Motion, NT Extremities: Normal Inspection, Normal Range of Motion, Non-Tender (LUE), No Pedal Edema, Normal Capillary Refill Neurological: Alert, Oriented, Normal Cognition, No Motor/Sensory Deficits Psychiatric: Normal Affect Skin Exam: Warm, Dry, Intact, Normal Color, No Rash EKG INTERPRETATION EKG Date: 12/06/19 Time: 21:11 Rhythm: NSR Rate (Beats/Min): 95 [place]: Normal P-Wave: Present QRS: Normal ST-T: Normal QT: Normal Comparison: NA - No Prior EKG Course - Vital Signs Last Recorded V/S: Last Vital Signs Temp 36.7 C 12/06/19 21:13 Pulse 81 12/06/19 21:13 Resp 20 12/06/19 21:13 BP 136/86 12/06/19 21:13 Pulse Ox 95 12/06/19 21:13 - Orders/Labs/Meds Orders: Active Orders 24 hr Category Date Time Status Accu Check [Blood Glucose Check, Bedside] [] ONETIME Care 12/06/19 22:08 Active EKG 12 Lead [EKG Documentation Completion] [] STAT Care 12/06/19 21:17 Active Labs: Laboratory Tests 12/06/19 Range/Units 22:11 POC Glucose 136 H (70-105) mg/dL Meds: Medications Discontinued Medications Generic Name Dose Route Start Last Admin Trade Name Freq PRN Reason Stop Dose Admin Ibuprofen 600 mg 12/06/19 22:08 12/06/19 22:12 Motrin PO 12/06/19 22:09 600 mg ONETIME ONE Administration Orphenadrine Citrate 100 mg 12/06/19 22:08 12/06/19 22:12 Norflex PO 12/06/19 22:09 100 mg ONETIME STA Administration - Re-Assessments/Exams Free Text/Narrative Re-Assessment/Exam: 12/06/19 22:08 The patient's central chest pain is musculoskeletal in etiology and is easily reproduced with both palpation as well as with having the patient flex her pectoralis muscles. No specific treatment is necessary, however, her symptoms may resolve a bit faster if we treat her with a muscle relaxant and ibuprofen. I will therefore start the patient on Norflex and prescribe a 7-day course. She can take [id number] ibuprofen 600 mg every 8 hours as needed. Because the patient does not check her blood sugars, I have asked Vashti HUBER to check an Accu-Chek. If it is not significantly elevated, I don't believe further workup is necessary today. If it is significantly elevated, I may want to check some other blood work to make sure that she has not suffered any significant fluid or electrolyte shifts. 12/06/19 22:13 The patient's Accu-Chek is 136. I will discharge her home. Departure - Departure Time of Disposition: 22:13 Disposition: Home, Self-Care 01 Condition: Good Clinical Impression: Musculoskeletal chest pain - Discharge Information *PRESCRIPTION DRUG MONITORING PROGRAM REVIEWED*: Not Applicable *COPY OF PRESCRIPTION DRUG MONITORING REPORT IN PATIENT AMERICO: Not Applicable Prescriptions: Orphenadrine [Norflex] 1 tab PO Q12H PRN #14 tab.er PRN Reason: Muscle Spasm Instructions: Musculoskeletal Pain Referrals: Dona Serra [facility] [Primary Care Provider] - Forms: ED Department Discharge Additional Instructions: You were seen in the emergency room after developing tingling to your left arm last night and sharp central chest pain this afternoon. Workup in the ER included an ECG, which was unremarkable. Based on your history, physical exam, and ECG, the cause of your symptoms is due to a strain of your pectoralis muscles. You have been started on the muscle relaxant Norflex, and a prescription for Norflex has been sent to the [facility]. Take one tablet of Norflex every 12 hours, starting tomorrow morning, , 12/07/2019, as prescribed. In addition to Norflex, we recommend that you take [id number] ibuprofen, 3 tablets (600 mg) every 8 hours, with food, as needed for discomfort. You should have complete relief of your symptoms within the next few days. If your symptoms persist, please follow-up with your PCP, Dona Serra NP. If any other problems, please do not hesitate to return to the ER. Sepsis Event Note - Evaluation Sepsis Screening Result: No Definite Risk - Focused Exam Vital Signs: Vital Signs Temp Pulse Resp BP Pulse Ox 12/06/19 21:13 36.7 C 81 20 136/86 95 Date Exam was Performed: 12/07/19 Time Exam was Performed: 08:25 - My Orders Last 24 Hours: My Active Orders 12/06/19 21:17 EKG 12 Lead [EKG Documentation Completion] [RC] STAT 12/06/19 22:08 Accu Check [Blood Glucose Check, Bedside] [RC] ONETIME - Assessment/Plan Last 24 Hours: My Active Orders 12/06/19 21:17 EKG 12 Lead [EKG Documentation Completion] [RC] STAT 12/06/19 22:08 Accu Check [Blood Glucose Check, Bedside] [RC] ONETIME
== END 2019-12-06 23:00 | disposition home or self-care (01) ==
LOC: JD.ED 21:05
DX: R07.89 Other chest pain (principal); E11.9 Type 2 diabetes mellitus without complications; E66.9 Obesity, unspecified; E78.00 Pure hypercholesterolemia, unspecified; Z79.84 Long term (current) use of oral hypoglycemic drugs; Z68.41 Body mass index [BMI] 40.0-44.9, adult; Z87.891 Personal history of nicotine dependence; Z88.8 Allergy status to other drugs, medicaments and biological substances; Z91.030 Bee allergy status
CPT/HCPCS: 82962; 93005; 99285; A9270; 93010; 99283

== ENCOUNTER 2019-12-14 16:43 | Emergency (ER) | payer MEDICAID ==
[2019-12-14] MEDS ORDERED: Ondansetron 4 MG Tab.DIS PO ONE ×2 (17:24→18:28)
--- NOTE | 2019-12-14 17:30 | EDM.PDOC ---
ED HPI GENERAL MEDICAL PROBLEM - General Chief Complaint: Gastrointestinal Problem Stated Complaint: LEFT ARM NUMBNESS/ VOMITING Time Seen by Provider: 12/14/19 17:13 Source of Information: Reports: Patient, RN Notes Reviewed History Limitations: Reports: No Limitations - History of Present Illness INITIAL COMMENTS - FREE TEXT/NARRATIVE: Patient is a 39-year-old female who presents to the ED for the evaluation of ongoing left arm numbness and left-sided chest discomfort. The patient states that she was evaluated in this ER last week, she was concerned she was having a heart attack. An EKG was done, and demonstrated no acute abnormalities, and her physical exam was most likely due to musculoskeletal strain in nature. She was sent home on Norflex, and other general recommendations. She states that the Norflex has not been helping much, and she is only been taking ibuprofen 400 mg 2 times a day, her last dose was yesterday. Patient notes that however this morning she developed nausea and vomiting, she states she has vomited at least 3 times today, she has not had any diarrhea with this. She denies any fevers or chills as well or any sort of cough or other upper respiratory symptoms. 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 She sees Dona Serra and Zhou is a primary care provider. The patient notes that the pain starts in her mid chest and is sharp stabbing in nature, that radiates to her left arm at times. - Related Data Allergies Allergy/AdvReac Type Severity Reaction Status Date / Time bee venom protein (honey bee) Allergy Severe Airway Verified 12/06/19 21:13 Tightness pseudoephedrine Allergy Mild Drowsiness Verified 12/06/19 21:13 [From DayQuil Sinus Pressure/Pain] Home Meds: Home Meds metFORMIN HCl [Metformin HCl] 1,000 mg PO BID 12/26/18 [History] Rosuvastatin [Crestor] 5 mg PO DAILY 10/04/19 [History] Orphenadrine [Norflex] 1 tab PO Q12H PRN #14 tab.er 12/06/19 [Rx] Ondansetron [Zofran ODT] 4 mg PO Q8H PRN #12 tab.dis 12/14/19 [Rx] Past Medical History HEENT History: Reports: Allergic Rhinitis, Impaired Vision (wears glasses) Cardiovascular History: Reports: High Cholesterol Respiratory History: Reports: Asthma Other Respiratory History: pleural effusion Genitourinary History: Reports: Renal Calculus, Urinary Incontinence OUTSIDE COLLECTOR History: Reports: Endometriosis, , Other (See Below) Other OUTSIDE COLLECTOR History: vaginosis, adenomyosis, endometriosis, nipple discharge Musculoskeletal History: Reports: Back Pain, Chronic Other Musculoskeletal History: degenerative disc disease Neurological History: Reports: Seizure Other Neuro History: sleep study test done and pt doesn't need tot mau seizure meds Psychiatric History: Reports: Addiction, Depression Endocrine/Metabolic History: Reports: Diabetes, Type II, Obesity/BMI 30+ - Infectious Disease History Infectious Disease History: Reports: Chicken Pox, MRSA Other Infectious Disease History: 5-6 yrs ago diagnosed. has not been tested but has had several surgeries since - Past Surgical History HEENT Surgical History: Reports: Oral Surgery, Tonsillectomy GI Surgical History: Reports: Appendectomy Female Surgical History: Reports: Hysterectomy, Tubal Ligation Musculoskeletal Surgical History: Reports: Other (See Below) Other Musculoskeletal Surgeries/Procedures:: surgery on both feet Social & Family History - Family History Family Medical History: Noncontributory - Tobacco Use Smoking Status *Q: Former Smoker Years of Tobacco use: 6 Used Tobacco, but Quit: Yes - Caffeine Use Caffeine Use: Reports: Tea - Recreational Drug Use Recreational Drug Use: No - Living Situation & Occupation Living situation: Reports: , with Significant Other (Fiance), with Family (Son) Occupation: Employed ([employer]) ED ROS GENERAL - Review of Systems Review Of Systems: See Below Constitutional: Denies: Fever, Chills, Decreased Appetite Respiratory: Denies: Shortness of Breath, Cough Cardiovascular: Reports: Chest Pain (Mid-left chest discomfort). Denies: Blood Pressure Problem, Dyspnea on Exertion, Lightheadedness GI/Abdominal: Reports: Nausea, Vomiting. Denies: Abdominal Pain, Constipation, Diarrhea : Denies: Dysuria, Frequency, Urgency Musculoskeletal: Reports: Arm Pain (Left arm pain/numbness) Skin: Denies: Pallor, Erythema Neurological: Reports: Numbness (pt states numbness in L arm at times). Denies : Tingling ED EXAM, GENERAL - Physical Exam Exam: See Below Exam Limited By: No Limitations General Appearance: Alert, WD/WN, No Apparent Distress Eye Exam: Bilateral Eye: EOMI, Normal Inspection, PERRL Ears: Normal External Exam, Normal Canal, Hearing Grossly Normal, Normal TMs Nose: Normal Inspection Throat/Mouth: Normal Inspection, Normal Lips, Normal Teeth, Normal Gums, Normal Oropharynx, Normal Voice, No Airway Compromise Head: Atraumatic, Normocephalic Neck: Normal Inspection, Supple, Non-Tender, Full Range of Motion Respiratory/Chest: No Respiratory Distress, Lungs Clear, Normal Breath Sounds, No Accessory Muscle Use, Other (tender to palpation of Left chest around 4-5th rib) Cardiovascular: Normal Peripheral Pulses, Regular Rate, Rhythm, No Edema, No Murmur Peripheral Pulses: 3+: Radial (L), Radial (R) GI/Abdominal: Normal Bowel Sounds, Soft, Non-Tender, No Distention, No Mass Extremities: Normal Inspection, Normal Capillary Refill Neurological: Alert, Oriented, Normal Cognition, No Motor/Sensory Deficits Psychiatric: Normal Affect, Normal Mood Skin Exam: Warm, Dry, Intact, Normal Color, No Rash Course - Vital Signs Last Recorded V/S: Last Vital Signs Temp 97.0 F 12/14/19 16:55 Pulse 77 12/14/19 16:55 Resp 16 12/14/19 16:55 BP 139/94 H 12/14/19 16:55 Pulse Ox 98 12/14/19 16:55 Orthostatic Blood Pressure [ 130/99 Standing] Orthostatic Blood Pressure [ 136/102 Sitting] - Orders/Labs/Meds Orders: Active Orders 24 hr Category Date Time Status Orthostatic Vital Signs [RC] ASDIRECTED Care 12/14/19 17:24 Active Labs: Laboratory Tests 12/14/19 12/14/19 Range/Units 17:42 17:42 WBC 8.78 (3.98-10.04) K/mm3 RBC 4.86 (3.98-5.22) M/mm3 Hgb 14.0 (11.2-15.7) gm/dl Hct 44.1 (34.1-44.9) % MCV 90.7 (79.4-94.8) fl MCH 28.8 (25.6-32.2) pg MCHC 31.7 L (32.2-35.5) g/dl RDW Std Deviation 39.9 (36.4-46.3) fL Plt Count 316 (182-369) K/mm3 MPV 9.7 (9.4-12.3) fl Neut % (Auto) 43.3 (34.0-71.1) % Lymph % (Auto) 47.4 (19.3-51.7) % Dent % (Auto) 6.0 (4.7-12.5) % Eos % (Auto) 2.5 (0.7-5.8) Baso % (Auto) 0.5 (0.1-1.2) % Neut # (Auto) 3.80 (1.56-6.13) K/mm3 Lymph # (Auto) 4.16 H (1.18-3.74) K/mm3 Dent # (Auto) 0.53 H (0.24-0.36) K/mm3 Eos # (Auto) 0.22 (0.04-0.36) K/mm3 Baso # (Auto) 0.04 (0.01-0.08) K/mm3 Sodium 143 (136-145) mEq/L Potassium 3.7 (3.5-5.1) mEq/L Chloride 106 (98-107) mEq/L Carbon Dioxide 27 (21-32) mEq/L Anion Gap 13.7 (5-15) BUN 10 (7-18) mg/dL Creatinine 0.7 (0.55-1.02) mg/dL Est Cr Clr Drug Dosing 100.01 mL/min Estimated GFR (MDRD) > 60 (>60) mL/min BUN/Creatinine Ratio 14.3 (14-18) Glucose 110 H (74-106) mg/dL Calcium 9.4 (8.5-10.1) mg/dL Total Bilirubin 0.4 (0.2-1.0) mg/dL AST 23 (15-37) U/L ALT 38 (14-59) U/L Alkaline Phosphatase 54 (46-116) U/L Total Protein 8.1 (6.4-8.2) g/dl Albumin 4.0 (3.4-5.0) g/dl Globulin 4.1 gm/dL Albumin/Globulin Ratio 1.0 (1-2) Meds: Medications Discontinued Medications Generic Name Dose Route Start Last Admin Trade Name Freq PRN Reason Stop Dose Admin Ondansetron HCl 4 mg 01/16/20 17:24 12/14/19 17:35 Zofran Odt PO 12/14/19 17:25 4 mg ONETIME ONE Administration Ondansetron HCl 4 mg 12/14/19 18:28 12/14/19 18:41 Zofran Odt PO 12/14/19 18:29 4 mg ONETIME ONE Administration - Re-Assessments/Exams Free Text/Narrative Re-Assessment/Exam: 12/14/19 17:32 Patient presents to the ED for evaluation of left arm numbness and some nausea and vomiting she is been having. I did order CBC and CMP, and orthostatic vital signs for further management and 4 mg of ODT Zofran for symptomatic management. I do believe that the patient's left arm pain is a continuation of the pectoralis muscle strain she was diagnosed with last week, as her pain is reproducible on physical exam. I did go over management of this, and she has not been taking medications as prescribed, as for the nausea and vomiting, I believe this is more of a viral gastroenteritis in nature. I am hopeful that the Zofran helps provide symptom relief, and that she can be discharged home safely with minimal work-up. Departure - Departure Time of Disposition: 18:22 Disposition: Home, Self-Care 01 Condition: Fair Clinical Impression: Musculoskeletal chest pain, Left arm numbness, Gastroenteritis - Discharge Information *PRESCRIPTION DRUG MONITORING PROGRAM REVIEWED*: No *COPY OF PRESCRIPTION DRUG MONITORING REPORT IN PATIENT AMERICO: No Prescriptions: Ondansetron [Zofran ODT] 4 mg PO Q8H PRN #12 tab.dis PRN Reason: Nausea Instructions: Chest Wall Pain, [id number], Nausea and Vomiting, Adult, Easy- to-Read Referrals: Dona Serra BUSINESS DEVELOPMENT CONSULTANT [Primary Care Provider] - Forms: ED Department Discharge, ED Return to Work/School Form Additional Instructions: You have been evaluated in the ED for nausea/vomiting. It is likely that this is caused from a viral gastroenteritis. You did receive 1 dose of Zofran in the ED, this is for nausea, and did seem to help provide you good relief from your symptoms. Over the next 24-48 hours please try to limit diet to clear liquids and advance as tolerate to a bland diet to alleviate symptoms of nausea/vomiting. You were given a prescription for Zofran, please use the Zofran every 8 hours as needed for nausea. You were however given 1 tablet for use overnight, your last dose of Zofran in the ER was at 5:30 PM, recommend you do not take the Zofran any earlier than 11:30 PM if you need to. As for your ongoing chest pain and left arm numbness, it is still thought that this is musculoskeletal in nature, strongly recommend that you take 600 mg ibuprofen every 6 hours for continuing pain relief. Do not exceed 3200 mg ibuprofen in a 24-hour time span. Please return to the ED if your symptoms should change or worsen. Sepsis Event Note - Evaluation Sepsis Screening Result: No Definite Risk - Focused Exam Vital Signs: Vital Signs Temp Pulse Resp BP Pulse Ox 12/14/19 16:55 97.0 F 77 16 139/94 H 98 Date Exam was Performed: 12/14/19 Time Exam was Performed: 21:30 - My Orders Last 24 Hours: My Active Orders 12/14/19 17:24 Orthostatic Vital Signs [RC] ASDIRECTED - Assessment/Plan Last 24 Hours: My Active Orders 12/14/19 17:24 Orthostatic Vital Signs [RC] ASDIRECTED
== END 2019-12-14 18:44 | disposition home or self-care (01) ==
LOC: JD.ED 16:43
DX: R07.89 Other chest pain (principal); K52.9 Noninfective gastroenteritis and colitis, unspecified; R20.0 Anesthesia of skin; E11.9 Type 2 diabetes mellitus without complications; E66.9 Obesity, unspecified; Z98.890 Other specified postprocedural states; Z90.49 Acquired absence of other specified parts of digestive tract; Z98.51 Tubal ligation status; Z90.710 Acquired absence of both cervix and uterus; Z87.891 Personal history of nicotine dependence; Z91.030 Bee allergy status; Z88.8 Allergy status to other drugs, medicaments and biological substances
CPT/HCPCS: 36415; 80053; 85025; 99284; A9270; 99283

== ENCOUNTER 2020-03-09 15:22 | Emergency (ER) | payer MEDICAID ==
[2020-03-09] MEDS ORDERED: Sodium Chloride 0.9% 1,000 ML IV ONE (15:44)
[2020-03-09] MEDS ORDERED: diphenhydrAMINE 50 MG/ML SDV IVPUSH ONE (15:44)
[2020-03-09] MEDS ORDERED: Metoclopramide 10 MG/2 ML SDV IVPUSH ONE (15:44)
[2020-03-09] MEDS ORDERED: Ketorolac 30 MG/ML SDV IVPUSH ONE (15:44)
--- NOTE | 2020-03-09 15:51 | EDM.PDOC ---
ED HPI GENERAL MEDICAL PROBLEM - General Chief Complaint: Headache Stated Complaint: [facility] Time Seen by Provider: 03/09/20 15:27 Source of Information: Reports: Patient, RN Notes Reviewed History Limitations: Reports: No Limitations - History of Present Illness INITIAL COMMENTS - FREE TEXT/NARRATIVE: Patient is a 39-year-old female who presents [facility] the ED [facility] for the evaluation of a migraine. The patient notes that this headache has been present for around 4 days, she states that she has taken Tylenol, Motrin, Aleve over the course of those days, with her last intake being Aleve at around 4 AM this morning. Patient states that her head hurts mostly all over , but there is a lot of pressure to the back of her head, this does seem to be normal course per her headaches. She does have a history of headaches, and has seen a provider, one is still there is been migraines, the other one says it is not. Nonetheless she has had some nausea and vomiting, and feels light sensitive and sound sensitive with this. The patient states that she has not had much of an appetite as she is not been eating, and her last bout of emesis was some clear fluid. The patient states that she also noticed some blood on the toilet paper when she went to the bathroom, and was unsure if it was coming from her urine or from her vagina. Patient states that she has had a hysterectomy and oophorectomy bilaterally, and she does not get regular periods any longer. Head Pain Score (Numeric/FACES): 8 - Related Data Allergies Allergy/AdvReac Type Severity Reaction Status Date / Time bee venom protein (honey bee) Allergy Severe Airway Verified 03/09/20 15:32 Tightness pseudoephedrine Allergy Mild Drowsiness Verified 03/09/20 15:32 [From DayQuil Sinus Pressure/Pain] Home Meds: Home Meds metFORMIN HCl [Metformin HCl] 1,000 mg PO BID 12/26/18 [History] Rosuvastatin Calcium 10 mg PO DAILY 01/28/20 [History] Sertraline [Zoloft] 100 mg PO DAILY 03/09/20 [History] hydrOXYzine HCL [hydrOXYzine] 100 mg PO BEDTIME 03/09/20 [History] Past Medical History HEENT History: Reports: Allergic Rhinitis, Impaired Vision Other HEENT History: wears glasses Cardiovascular History: Reports: High Cholesterol Respiratory History: Reports: Asthma Other Respiratory History: pleural effusion Gastrointestinal History: Reports: Chronic Constipation Genitourinary History: Reports: Renal Calculus, Urinary Incontinence ELECTRONIC PAGINATION SYSTEM OPERATOR History: Reports: Endometriosis, , Other (See Below) Other ELECTRONIC PAGINATION SYSTEM OPERATOR History: vaginosis, adenomyosis, endometriosis, nipple discharge Musculoskeletal History: Reports: Back Pain, Chronic Other Musculoskeletal History: degenerative disc disease Neurological History: Reports: Seizure Other Neuro History: EEG done and pt doesn't need to take seizure meds Psychiatric History: Reports: Addiction, Depression Endocrine/Metabolic History: Reports: Diabetes, Type II, Obesity/BMI 30+ - Infectious Disease History Infectious Disease History: Reports: Chicken Pox, MRSA Other Infectious Disease History: 5-6 yrs ago diagnosed. has not been tested but has had several surgeries since - Past Surgical History HEENT Surgical History: Reports: Oral Surgery, Tonsillectomy GI Surgical History: Reports: Appendectomy Female Surgical History: Reports: Hysterectomy, Tubal Ligation Musculoskeletal Surgical History: Reports: Other (See Below) Other Musculoskeletal Surgeries/Procedures:: surgery on both feet Social & Family History - Family History Family Medical History: Noncontributory - Caffeine Use Caffeine Use: Reports: Tea - Recreational Drug Use Recreational Drug Use: Yes Recreational Drug Type: Reports: Marijuana/Hashish - Living Situation & Occupation Living situation: Reports: , with Significant Other (Fiance), with Family (Son) Occupation: Employed ([employer]) [facility] - Review of Systems Review Of Systems: See Below Constitutional: Reports: Decreased Appetite (states d/t headache). Denies: Fever, Chills, Malaise Respiratory: Denies: Shortness of Breath, Cough Cardiovascular: Denies: Chest Pain GI/Abdominal: Reports: Decreased Appetite, Nausea, Vomiting. Denies: Abdominal Pain, Constipation, Diarrhea : Reports: Frequency (states that she has been drinking a lot of water), Other (scant vaginal bleeding). Denies: Dysuria, Flank Pain, Pain, Urgency Neurological: Reports: Headache - Physical Exam Exam: See Below Exam Limited By: No Limitations General Appearance: Alert, WD/WN, No Apparent Distress Eye Exam: Bilateral Eye: EOMI, Normal Inspection, PERRL Ears: Normal External Exam Nose: Normal Inspection Throat/Mouth: Normal Inspection, Normal Lips, Normal Teeth, Normal Gums, Normal Oropharynx, Normal Voice, No Airway Compromise Head Exam: Atraumatic, Normocephalic Neck: Normal Inspection Respiratory/Chest: No Respiratory Distress, Lungs Clear, Normal Breath Sounds, No Accessory Muscle Use, Chest Non-Tender Cardiovascular: Normal Peripheral Pulses, Regular Rate, Rhythm, No Murmur GI/Abdominal: Normal Bowel Sounds, Soft, Non-Tender, No Distention, No Mass (Female) Exam: Deferred, Vaginal Bleeding (scant amount per patient report) Neuro Exam (Abbreviated): Alert, Oriented, Normal Cognition, No Motor/Sensory Deficits Extremities: Normal Inspection, Normal Capillary Refill Psychiatric: Normal Affect, Normal Mood Skin Exam: Warm, Dry, Intact, Normal Color, No Rash Course - Vital Signs Last Recorded V/S: Last Vital Signs Temp 97.1 F 03/09/20 15:24 Pulse 66 03/09/20 15:24 Resp 16 03/09/20 15:24 BP 142/70 H 03/09/20 15:24 Pulse Ox 97 03/09/20 15:24 - Orders/Labs/Meds Labs: Laboratory Tests 03/09/20 03/09/20 03/09/20 Range/Units 15:30 15:30 15:30 WBC 10.40 H (3.98-10.04) K/mm3 RBC 4.69 (3.98-5.22) M/mm3 Hgb 13.4 (11.2-15.7) gm/dl Hct 41.7 (34.1-44.9) % MCV 88.9 (79.4-94.8) fl MCH 28.6 (25.6-32.2) pg MCHC 32.1 L (32.2-35.5) g/dl RDW Std Deviation 39.8 (36.4-46.3) fL Plt Count 307 (182-369) K/mm3 MPV 10.5 (9.4-12.3) fl Neut % (Auto) 53.4 (34.0-71.1) % Lymph % (Auto) 37.0 (19.3-51.7) % Crosby % (Auto) 6.0 (4.7-12.5) % Eos % (Auto) 3.1 (0.7-5.8) Baso % (Auto) 0.4 (0.1-1.2) % Neut # (Auto) 5.56 (1.56-6.13) K/mm3 Lymph # (Auto) 3.85 H (1.18-3.74) K/mm3 Crosby # (Auto) 0.62 H (0.24-0.36) K/mm3 Eos # (Auto) 0.32 (0.04-0.36) K/mm3 Baso # (Auto) 0.04 (0.01-0.08) K/mm3 Manual Slide Review Normal smear Sodium 138 (136-145) mEq/L Potassium 3.9 (3.5-5.1) mEq/L Chloride 104 (98-107) mEq/L Carbon Dioxide 23 (21-32) mEq/L Anion Gap 14.9 (5-15) BUN 12 (7-18) mg/dL Creatinine 0.6 (0.55-1.02) mg/dL Est Cr Clr Drug Dosing 116.68 mL/min Estimated GFR (MDRD) > 60 (>60) mL/min BUN/Creatinine Ratio 20.0 H (14-18) Glucose 110 H (74-106) mg/dL Calcium 8.6 (8.5-10.1) mg/dL Total Bilirubin 0.4 (0.2-1.0) mg/dL AST 20 (15-37) U/L ALT 29 (14-59) U/L Alkaline Phosphatase 61 (46-116) U/L Total Protein 7.7 (6.4-8.2) g/dl Albumin 3.6 (3.4-5.0) g/dl Globulin 4.1 gm/dL Albumin/Globulin Ratio 0.9 L (1-2) Urine Color Yellow (Yellow) Urine Appearance Clear (Clear) Urine pH 7.0 (5.0-8.0) Ur Specific [place] 1.025 (1.005-1.030) Urine Protein Trace H (Negative) Urine Glucose (UA) Negative (Negative) Urine Ketones Negative (Negative) Urine Occult Blood Negative (Negative) Urine Nitrite Negative (Negative) Urine Bilirubin Negative (Negative) Urine Urobilinogen 0.2 (0.2-1.0) Ur Leukocyte Esterase Negative (Negative) Urine RBC 0-5 (0-5) /hpf Urine WBC 0-5 (0-5) /hpf Ur Squamous Epith Cells 10-20 H (0-5) /hpf Urine Bacteria Few (FEW) /hpf Urine Mucus Many H (FEW) /hpf Meds: Medications Discontinued Medications Generic Name Dose Route Start Last Admin Trade Name Josselin PRN Reason Stop Dose Admin Diphenhydramine HCl 25 mg 03/09/20 15:44 03/09/20 16:15 Benadryl IVPUSH 03/09/20 15:45 25 mg ONETIME ONE Administration Sodium Chloride 1,000 mls @ 999 mls/hr 03/09/20 15:44 03/09/20 16:11 Normal Saline IV 03/09/20 16:44 999 mls/hr ASDIRECTED ONE Administration Ketorolac Tromethamine 30 mg 03/09/20 15:44 03/09/20 16:12 Toradol IVPUSH 03/09/20 15:45 30 mg ONETIME ONE Administration Metoclopramide HCl 10 mg 03/09/20 15:44 03/09/20 16:16 Reglan IVPUSH 03/09/20 15:45 10 mg ONETIME ONE Administration - Re-Assessments/Exams Free Text/Narrative Re-Assessment/Exam: 03/09/20 15:54 Patient presents to the ED for her headache. She did have an IV placed, and I will order some fluids, benadryl, reglan, and toradol for headache management. I do not know what the etiology of her vaginal bleeding is, but I did order a UA and other baseline labs to evaluate for infection. Will likely have her follow up with her regular provider. 03/09/20 17:08 The patient's laboratory evaluation is essentially within normal limits. Urinalysis demonstrates no sign of infection. Will discharge patient home as she states her headache is much better and she will follow-up with her regular provider or ELECTRONIC PAGINATION SYSTEM OPERATOR on Wednesday for the vaginal bleeding. Departure - Departure Time of Disposition: 17:08 Disposition: Home, Self-Care 01 Condition: Good Clinical Impression: Tension-type headache, Vaginal bleeding - Discharge Information *PRESCRIPTION DRUG MONITORING PROGRAM REVIEWED*: No *COPY OF PRESCRIPTION DRUG MONITORING REPORT IN PATIENT AMERICO: No Referrals: PCP,Unknown [Ordering Only Provider] - Forms: ED Department Discharge Additional Instructions: You were evaluated in the ER today regarding your headache and vaginal bleeding. You were given a combination of medications in your IV and some IV fluids, this did seem to help relieve your headache. You also had some laboratory evaluation , that was within normal limits. You do not have a UTI, and the bleeding is not coming from your bladder. The cause of your vaginal bleeding is still unknown at this time. Recommend you follow-up with your family practice doc or your ELECTRONIC PAGINATION SYSTEM OPERATOR on Wednesday for further evaluation, as your hemoglobin is within normal limits, and you are not hypotensive so there is no emergency at today's visit. Please keep an eye on the amount of bleeding you are having, If you bleed through more than 1-2 pads in an hour, that would be cause for concern to return back to the ER, or if you get any sort of dizziness/ lightheadedness with standing or changing positions. Please return to the ER at any time if symptoms change or worsen Sepsis Event Note - Evaluation Sepsis Screening Result: No Definite Risk - Focused Exam Vital Signs: Vital Signs Temp Pulse Resp BP Pulse Ox 03/09/20 15:24 97.1 F 66 16 142/70 H 97 Date Exam was Performed: 03/09/20 Time Exam was Performed: 17:08
== END 2020-03-09 17:35 | disposition home or self-care (01) ==
LOC: JD.ED 15:22
DX: G44.209 Tension-type headache, unspecified, not intractable (principal); N93.9 Abnormal uterine and vaginal bleeding, unspecified; E78.00 Pure hypercholesterolemia, unspecified; J45.909 Unspecified asthma, uncomplicated; F32.9 Major depressive disorder, single episode, unspecified; E11.9 Type 2 diabetes mellitus without complications; E66.9 Obesity, unspecified; Z68.41 Body mass index [BMI] 40.0-44.9, adult; Z91.030 Bee allergy status; Z88.8 Allergy status to other drugs, medicaments and biological substances; Z79.84 Long term (current) use of oral hypoglycemic drugs; Z79.899 Other long term (current) drug therapy
CPT/HCPCS: 36415; 80053; 81001; 85025; 96361; 96374; 96375; 99283; J1200; J1885; J2765; J7030; 99284

== ENCOUNTER 2020-03-16 13:29 | Emergency (ER) | payer MEDICAID ==
[2020-03-16] MEDS ORDERED: diphenhydrAMINE 50 MG/ML SDV IVPUSH ONE (14:00)
--- NOTE | 2020-03-16 14:04 | EDM.PDOC ---
ED HPI GENERAL MEDICAL PROBLEM - General Chief Complaint: Lower Extremity Injury/Pain Stated Complaint: LT LEG PAIN Time Seen by Provider: 03/16/20 13:39 Source of Information: Reports: Patient History Limitations: Reports: No Limitations - History of Present Illness INITIAL COMMENTS - FREE TEXT/NARRATIVE: Patient is a 39-year-old female who presents with complaints of pain to her left foot and ankle after a fall last evening. Patient states she was walking down the stairs and she slipped. Her right leg extended out in front of her and her left foot remained on the stair and hyperextended forward. She has been able to ambulate on the extremity since that time, however it is painful. She has a history of previous surgery to that foot for "cartilage repair ". - Related Data Allergies Allergy/AdvReac Type Severity Reaction Status Date / Time bee venom protein (honey bee) Allergy Severe Airway Verified 03/16/20 13:45 Tightness pseudoephedrine Allergy Mild Drowsiness Verified 03/16/20 13:45 [From DayQuil Sinus Pressure/Pain] Home Meds: Home Meds metFORMIN HCl [Metformin HCl] 1,000 mg PO BID 12/26/18 [History] Rosuvastatin Calcium 10 mg PO DAILY 01/28/20 [History] Sertraline [Zoloft] 100 mg PO DAILY 03/09/20 [History] hydrOXYzine HCL [hydrOXYzine] 100 mg PO BEDTIME 03/09/20 [History] Past Medical History HEENT History: Reports: Allergic Rhinitis, Impaired Vision Other HEENT History: wears glasses Cardiovascular History: Reports: High Cholesterol Respiratory History: Reports: Asthma Other Respiratory History: pleural effusion Gastrointestinal History: Reports: Chronic Constipation Genitourinary History: Reports: Renal Calculus, Urinary Incontinence 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: Reports: Endometriosis, , Other (See Below) Other 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: vaginosis, adenomyosis, endometriosis, nipple discharge Musculoskeletal History: Reports: Back Pain, Chronic Other Musculoskeletal History: degenerative disc disease Neurological History: Reports: Seizure Other Neuro History: EEG done and pt doesn't need to take seizure meds Psychiatric History: Reports: Addiction, Depression Endocrine/Metabolic History: Reports: Diabetes, Type II, Obesity/BMI 30+ Hematologic History: Reports: None Immunologic History: Reports: None Oncologic (Cancer) History: Reports: None Dermatologic History: Reports: None - Infectious Disease History Infectious Disease History: Reports: Chicken Pox, MRSA Other Infectious Disease History: 5-6 yrs ago diagnosed. has not been tested but has had several surgeries since - Past Surgical History Head Surgeries/Procedures: Reports: None HEENT Surgical History: Reports: Oral Surgery, Tonsillectomy GI Surgical History: Reports: Appendectomy Female Surgical History: Reports: Hysterectomy, Tubal Ligation Musculoskeletal Surgical History: Reports: Other (See Below) Other Musculoskeletal Surgeries/Procedures:: surgery on both feet Oncologic Surgical History: Reports: None Dermatological Surgical History: Reports: None Social & Family History - Family History Family Medical History: Noncontributory - Tobacco Use Smoking Status *Q: Never Smoker Second Hand Smoke Exposure: No - Caffeine Use Caffeine Use: Reports: Coffee - Recreational Drug Use Recreational Drug Use: No - Living Situation & Occupation Living situation: Reports: , with Significant Other (Fiance), with Family (Son) 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 ED EXAM, GENERAL - Physical Exam Exam: See Below Exam Limited By: No Limitations General Appearance: Alert, WD/WN, No Apparent Distress Respiratory/Chest: No Respiratory Distress, Lungs Clear, Normal Breath Sounds, No Accessory Muscle Use, Chest Non-Tender Cardiovascular: Normal Peripheral Pulses, Regular Rate, Rhythm, No Edema, No Gallop, No JVD, No Murmur, No Rub Extremities: Normal Inspection, Normal Range of Motion, No Pedal Edema, Normal Capillary Refill, Other (Tenderness to the dorsal aspect of the left foot and bilateral sides of the ankle. No obvious deformity, ecchymosis or swelling noted. CMS intact) Psychiatric: Normal Affect, Normal Mood Skin Exam: Warm, Dry, Intact, Normal Color, No Rash Course - Vital Signs Last Recorded V/S: Last Vital Signs Temp 97.1 F 03/16/20 13:48 Pulse 72 03/16/20 13:48 Resp 13 03/16/20 13:48 BP 120/85 03/16/20 13:48 Pulse Ox 97 03/16/20 13:48 - Orders/Labs/Meds Orders: Active Orders 24 hr Category Date Time Status Ankle Min 3V Lt [CR] Stat Exams 03/16/20 14:01 Taken Foot Comp Min 3V Lt [CR] Stat Exams 03/16/20 14:01 Taken Meds: Medications Discontinued Medications Generic Name Dose Route Start Last Admin Trade Name Josselin PRN Reason Stop Dose Admin Diphenhydramine HCl 50 mg 03/16/20 14:00 Benadryl IVPUSH 03/16/20 14:01 ONETIME ONE Departure - Departure Time of Disposition: 14:37 Disposition: Home, Self-Care 01 Condition: Good Clinical Impression: Strain of foot, left Qualifiers: Encounter type: initial encounter Qualified Code(s): S96.912A - Strain of unspecified muscle and tendon at ankle and foot level, left foot, initial encounter - Discharge Information *PRESCRIPTION DRUG MONITORING PROGRAM REVIEWED*: No *COPY OF PRESCRIPTION DRUG MONITORING REPORT IN PATIENT AMERICO: No Instructions: Foot Sprain Referrals: Dona Serra INTERFACE ANALYST [Primary Care Provider] - Forms: ED Department Discharge Additional Instructions: You were seen in the emergency department today for pain to your left foot and ankle after falling yesterday. X-rays were completed of the foot and the ankle and did not show any acute fractures. It is likely that when you hyperextended your foot that you strained the ligaments across the top of your foot and ankle. An Adiel wrap has been applied for comfort. You may wear this as needed. Recommend that you ice and elevate over the next couple days. You may use Tylenol or ibuprofen as needed for pain. If after a week you continue to have pain to the area, you may follow-up with Dr. Jang, orthopedist[facility] Return to the ER as needed. Sepsis Event Note - Evaluation Sepsis Screening Result: No Definite Risk - Focused Exam Vital Signs: Vital Signs Temp Pulse Resp BP Pulse Ox 03/16/20 13:48 97.1 F 72 13 120/85 97 Date Exam was Performed: 03/16/20 Time Exam was Performed: 14:37 - My Orders Last 24 Hours: My Active Orders 03/16/20 14:01 Ankle Min 3V Lt [CR] Stat Foot Comp Min 3V Lt [CR] Stat - Assessment/Plan Last 24 Hours: My Active Orders 03/16/20 14:01 Ankle Min 3V Lt [CR] Stat Foot Comp Min 3V Lt [CR] Stat
--- NOTE | 2020-03-17 10:28 | CR ---
Left foot: 3 views left foot were obtained. Comparison: No prior foot exam is available. Fusion surgery is seen between the tarsometatarsal joints of the 1st through 3rd digits. Orthopedic fixation hardware is in place. Plantar spur is noted. No acute fracture or other bony abnormality is identified. Soft tissue swelling is noted dorsally. Impression: 1. Old surgery. 2. Soft tissue swelling within the dorsum of the foot. 3. No additional abnormality is appreciated. Diagnostic code #2 This report was dictated in MDT I agree with preliminary report from [facility], finalized on 03/16/20, 3:30 PM Central Daylight Time
--- NOTE | 2020-03-17 10:28 | CR ---
Left ankle: 4 views left ankle were obtained. Comparison: Previous left ankle exam of 03/25/19. Previous surgery is noted between the tarsal and metatarsals with multiple orthopedic fixation hardware. Ankle mortise is symmetric. No acute fracture or dislocation is seen. Small plantar spur is present. Previous surgery or old injury is noted within the calcaneus. Impression: 1. Previous surgery as noted above. 2. Small plantar spur. 3. Nothing acute is appreciated on left ankle exam. Diagnostic code #2 This report was dictated in MDT I agree with preliminary report from [facility], finalized on 03/16/20, 3:26 PM [place] Daylight Time
== END 2020-03-16 15:05 | disposition home or self-care (01) ==
LOC: JD.ED 13:29
DX: S96.912A Strain of unspecified muscle and tendon at ankle and foot level, left foot, initial encounter (principal); E78.00 Pure hypercholesterolemia, unspecified; J45.909 Unspecified asthma, uncomplicated; R56.9 Unspecified convulsions; F32.9 Major depressive disorder, single episode, unspecified; E11.9 Type 2 diabetes mellitus without complications; E66.9 Obesity, unspecified; Z91.030 Bee allergy status; Z88.8 Allergy status to other drugs, medicaments and biological substances; Z79.899 Other long term (current) drug therapy; Z68.41 Body mass index [BMI] 40.0-44.9, adult
CPT/HCPCS: 73610-26-LT; 73610-LT; 73630-26-LT; 73630-LT; 99283; 99283-25

== ENCOUNTER 2020-06-16 22:52 | Emergency (ER) | payer MEDICAID ==
--- NOTE | 2020-06-16 23:58 | EDM.PDOC ---
ED HPI GENERAL MEDICAL PROBLEM - General Chief Complaint: Lower Extremity Injury/Pain Stated Complaint: LEFT FOOT INJURY FROM FALL YESTERDAY Time Seen by Provider: 06/16/20 23:46 Source of Information: Reports: Patient, RN Notes Reviewed - History of Present Illness INITIAL COMMENTS - FREE TEXT/NARRATIVE: 39 yr female slipped yesterday injuring L foot. She twisted R ankle but not severe. 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 Increased pain with wt bearing. Had fusion multiple joints L foot 3 to 4 yrs ago. Left Foot Pain Score (Numeric/FACES): 8 - Related Data Allergies Allergy/AdvReac Type Severity Reaction Status Date / Time bee venom protein (honey bee) Allergy Severe Airway Verified 06/16/20 23:04 Tightness pseudoephedrine Allergy Mild Drowsiness Verified 06/16/20 23:04 [From DayQuil Sinus Pressure/Pain] Home Meds: Home Meds metFORMIN HCl [Metformin HCl] 1,000 mg PO BID 12/26/18 [History] Rosuvastatin Calcium 10 mg PO DAILY 01/28/20 [History] Sertraline [Zoloft] 100 mg PO DAILY 03/09/20 [History] hydrOXYzine HCL [hydrOXYzine] 100 mg PO BEDTIME 03/09/20 [History] Past Medical History HEENT History: Reports: Allergic Rhinitis, Impaired Vision Other HEENT History: wears glasses Cardiovascular History: Reports: High Cholesterol Respiratory History: Reports: Asthma Other Respiratory History: pleural effusion Gastrointestinal History: Reports: Chronic Constipation Genitourinary History: Reports: Renal Calculus, Urinary Incontinence 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: Reports: Endometriosis, , Other (See Below) Other 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: vaginosis, adenomyosis, endometriosis, nipple discharge Musculoskeletal History: Reports: Back Pain, Chronic Other Musculoskeletal History: degenerative disc disease Neurological History: Reports: Seizure Other Neuro History: EEG done and pt doesn't need to take seizure meds Psychiatric History: Reports: Addiction, Depression Endocrine/Metabolic History: Reports: Diabetes, Type II, Obesity/BMI 30+ Hematologic History: Reports: None Immunologic History: Reports: None Oncologic (Cancer) History: Reports: None Dermatologic History: Reports: None - Infectious Disease History Infectious Disease History: Reports: Chicken Pox, MRSA Other Infectious Disease History: 5-6 yrs ago diagnosed. has not been tested but has had several surgeries since - Past Surgical History Head Surgeries/Procedures: Reports: None HEENT Surgical History: Reports: Oral Surgery, Tonsillectomy GI Surgical History: Reports: Appendectomy Female Surgical History: Reports: Hysterectomy, Tubal Ligation Musculoskeletal Surgical History: Reports: Other (See Below) Other Musculoskeletal Surgeries/Procedures:: surgery on both feet Oncologic Surgical History: Reports: None Dermatological Surgical History: Reports: None Social & Family History - Family History Family Medical History: Noncontributory - Tobacco Use Smoking Status *Q: Never Smoker - Caffeine Use Caffeine Use: Reports: Coffee - Living Situation & Occupation Living situation: Reports: , with Significant Other (Fiance), with Family (Son) 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) Review of Systems - Review of Systems Review Of Systems: See Below Constitutional: Denies: Chills, Fever Cardiovascular: Reports: No Symptoms GI/Abdominal: Reports: No Symptoms Musculoskeletal: Reports: Joint Pain (L foot) Skin: Denies: Rash, Erythema Neurological: Denies: Numbness, Tingling ED EXAM, GENERAL - Physical Exam Exam: See Below General Appearance: Alert, No Apparent Distress Head: Atraumatic Neck: Supple Respiratory/Chest: No Respiratory Distress Extremities: Other (tenderness mid dorsum L foot, very minimal localized swelling, no warmth or erythema, foot otherwise nontender) Neurological: No Motor/Sensory Deficits Course - Vital Signs Last Recorded V/S: Last Vital Signs Temp 97.5 F 06/16/20 23:01 Pulse 60 06/17/20 00:12 Resp 18 06/17/20 00:12 BP 116/68 06/17/20 00:12 Pulse Ox 98 06/17/20 00:12 - Orders/Labs/Meds Orders: Active Orders 24 hr Category Date Time Status Foot Comp Min 3V Lt [CR] Stat Exams 06/16/20 23:14 Taken - Re-Assessments/Exams Free Text/Narrative Re-Assessment/Exam: 06/17/20 01:09 X rays no visible fx Departure - Departure Time of Disposition: 23:55 Disposition: Home, Self-Care 01 Condition: Fair Clinical Impression: Sprain of foot, left - Discharge Information Instructions: Foot Sprain Referrals: Horacio Washington PA-C [Primary Care Provider] - Forms: ED Department Discharge, ED Return to Work/School Form Additional Instructions: rest and elevate foot as much as possible, ice packs 3 to 4 times daily until pain resolving. Alternate tylenol and motrin as needed. Follow up clinic if not getting back to normal within 5 to 7 days as expected. Sepsis Event Note (ED) - Evaluation Sepsis Screening Result: No Definite Risk - Focused Exam Vital Signs: Vital Signs Temp Pulse Resp BP Pulse Ox 06/17/20 00:12 60 18 116/68 98 06/16/20 23:01 97.5 F 60 16 132/80 98 - My Orders Last 24 Hours: My Active Orders 06/16/20 23:14 Foot Comp Min 3V Lt [CR] Stat - Assessment/Plan Last 24 Hours: My Active Orders 06/16/20 23:14 Foot Comp Min 3V Lt [CR] Stat
--- NOTE | 2020-06-17 05:10 | CR ---
Left foot: 4 views of the left foot were obtained. Comparison: No previous foot study. Plate and screws are identified within the base of the 1st through 3rd metatarsals. Orthopedic fixation also noted between the base of the 1st and 2nd tarsometatarsal joints. Fracture is seen within the base of the 3rd and 4th metatarsals which appear mostly healed with bridging callus. Plantar spur is noted. No abnormal lucency is seen around the hardware. No acute fracture or other bony abnormality is seen. Impression: 1. Old fractures. 2. Orthopedic hardware. 3. Small plantar spur. Nothing acute is seen. Diagnostic code #2 This report was dictated in MDT
== END 2020-06-17 00:12 | disposition home or self-care (01) ==
LOC: JD.ED 22:52
DX: S93.602A Unspecified sprain of left foot, initial encounter (principal); E78.00 Pure hypercholesterolemia, unspecified; F32.9 Major depressive disorder, single episode, unspecified; E11.9 Type 2 diabetes mellitus without complications; E66.9 Obesity, unspecified; Z68.41 Body mass index [BMI] 40.0-44.9, adult; Z88.8 Allergy status to other drugs, medicaments and biological substances; Z91.030 Bee allergy status; Z79.899 Other long term (current) drug therapy; Z79.84 Long term (current) use of oral hypoglycemic drugs; X50.1XXA Overexertion from prolonged static or awkward postures, initial encounter
CPT/HCPCS: 73630-26-LT; 73630-LT; 99282; 99283-25

== ENCOUNTER 2020-09-30 16:32 | Emergency (ER) | payer MEDICAID ==
[2020-09-30] MEDS ORDERED: FLU VACC QS2020-21(6MOS UP)/PF 60 MCG/0.5 ML SYRINGE IM ONE (17:30)
[2020-09-30] MEDS ORDERED: HYDROmorphone 1 MG/ML Syringe IM ONE (17:41)
[2020-09-30] MEDS ORDERED: Ondansetron 4 MG Tab.DIS PO ONE (17:42)
--- NOTE | 2020-09-30 17:45 | EDM.PDOC ---
ED HPI GENERAL MEDICAL PROBLEM - General Chief Complaint: Abdominal Pain Stated Complaint: ABDOMINAL PAIN/CRAMPING Time Seen by Provider: 09/30/20 16:52 Source of Information: Reports: Patient, RN Notes Reviewed History Limitations: Reports: No Limitations - History of Present Illness INITIAL COMMENTS - FREE TEXT/NARRATIVE: Patient is a 39-year-old female who presents to the ED for the evaluation of her lower abdomen pain. Patient notes that for the last 3 days, she has been experiencing low pelvic cramping, this seems to be on her right and left lower abdomen. She notes that she has had a hysterectomy, along with an appendectomy. She states that the pain seems to radiate into her flanks as well, she states she does have a history of kidney stones as well. She denies any vaginal issues like discharge or malodorous discharge. She is not having any vaginal bleeding. She is complaining of urinary frequency, but no dysuria. She has had no fevers or chills, she states she did vomit once this morning, but does not feel nauseous or feel like vomiting now. She denies any diarrhea, and states that her bowel movements have been regular for herself. She notes that she has been trying to increase her oral fluid intake as well, to try to see if this helped. Pelvic Pain Score (Numeric/FACES): 9 - Related Data Allergies Allergy/AdvReac Type Severity Reaction Status Date / Time bee venom protein (honey bee) Allergy Severe Airway Verified 09/30/20 16:48 Tightness pseudoephedrine AdvReac Mild Drowsiness Verified 09/30/20 17:09 [From DayQuil Sinus Pressure/Pain] Home Meds: Home Meds metFORMIN HCl [Metformin HCl] 1,000 mg PO BID 12/26/18 [History] Rosuvastatin Calcium 10 mg PO DAILY 01/28/20 [History] Sertraline [Zoloft] 100 mg PO DAILY 03/09/20 [History] hydrOXYzine HCL [hydrOXYzine] 100 mg PO BEDTIME 03/09/20 [History] Past Medical History HEENT History: Reports: Allergic Rhinitis, Impaired Vision Other HEENT History: wears glasses Cardiovascular History: Reports: High Cholesterol Respiratory History: Reports: Asthma Other Respiratory History: pleural effusion Gastrointestinal History: Reports: Chronic Constipation Genitourinary History: Reports: Renal Calculus, Urinary Incontinence 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 MEDICAL TECHNOLOGIST History: Reports: Endometriosis, , Other (See Below) Other CHIEF MEDICAL TECHNOLOGIST History: vaginosis, adenomyosis, endometriosis, nipple discharge Musculoskeletal History: Reports: Back Pain, Chronic Other Musculoskeletal History: degenerative disc disease Neurological History: Reports: Seizure Other Neuro History: EEG done and pt doesn't need to take seizure meds Psychiatric History: Reports: Addiction, Depression Endocrine/Metabolic History: Reports: Diabetes, Type II, Obesity/BMI 30+ Hematologic History: Reports: None Immunologic History: Reports: None Oncologic (Cancer) History: Reports: None Dermatologic History: Reports: None - Infectious Disease History Infectious Disease History: Reports: Novel Coronavirus Other Infectious Disease History: 5-6 yrs ago diagnosed. has not been tested but has had several surgeries since - Past Surgical History Head Surgeries/Procedures: Reports: None HEENT Surgical History: Reports: Oral Surgery, Tonsillectomy GI Surgical History: Reports: Appendectomy Female Surgical History: Reports: Hysterectomy, Tubal Ligation Musculoskeletal Surgical History: Reports: Other (See Below) Other Musculoskeletal Surgeries/Procedures:: surgery on both feet Oncologic Surgical History: Reports: None Dermatological Surgical History: Reports: None Social & Family History - Family History Family Medical History: Noncontributory - Tobacco Use Tobacco Use Status *Q: Former Tobacco User Used Tobacco, but Quit: Yes Month/Year Tobacco Last Used: 2013 - Caffeine Use Caffeine Use: Reports: Coffee, Soda - Recreational Drug Use Recreational Drug Use: Yes Recreational Drug Type: Reports: Marijuana/Hashish - Living Situation & Occupation Living situation: Reports: , with Significant Other (Fiance), with Family (Son) Occupation: Employed ([employer]) ED ROS GENERAL - Review of Systems Review Of Systems: Comprehensive ROS is negative, except as noted in HPI. ED EXAM, RENAL/ - Physical Exam Exam: See Below Exam Limited By: No Limitations General Appearance: Alert, WD/WN, No Apparent Distress Respiratory/Chest: No Respiratory Distress, Lungs Clear, Normal Breath Sounds, No Accessory Muscle Use, Chest Non-Tender Cardiovascular: Normal Peripheral Pulses, Regular Rate, Rhythm, No Murmur GI/Abdominal: Normal Bowel Sounds, Soft, No Distention, No Mass, Tender (low abdomen) Extremities: Normal Inspection, Normal Capillary Refill Neurological: Alert, Oriented, Normal Cognition, No Motor/Sensory Deficits Psychiatric: Normal Affect, Normal Mood Skin Exam: Warm, Dry, Intact, Normal Color, No Rash Course - Vital Signs Last Recorded V/S: Last Vital Signs Temp 97.6 F 09/30/20 16:45 Pulse 73 09/30/20 16:45 Resp 18 09/30/20 16:45 BP 132/75 09/30/20 16:45 Pulse Ox 96 09/30/20 16:45 - Orders/Labs/Meds Orders: Active Orders 24 hr Category Date Time Status Influenza Vaccine Charge [RC] .DISCHARGE Care 09/30/20 16:51 Active Abdomen Pelvis wo Cont [CT] Stat Exams 09/30/20 18:22 Ordered CULTURE URINE [RM] Routine Lab 09/30/20 19:02 Ordered Labs: Laboratory Tests 09/30/20 Range/Units 17:35 Urine Color Yellow (Yellow) Urine Appearance Slt cloudy H (Clear) Urine pH 5.5 (5.0-8.0) Ur Specific [place] > or = 1.030 (1.005-1.030) Urine Protein 1+ H (Negative) Urine Glucose (UA) Negative (Negative) Urine Ketones Negative (Negative) Urine Occult Blood 2+ H (Negative) Urine Nitrite Negative (Negative) Urine Bilirubin Negative (Negative) Urine Urobilinogen 0.2 (0.2-1.0) Ur Leukocyte Esterase Negative (Negative) Urine RBC 5-10 H (0-5) /hpf Urine WBC 0-5 (0-5) /hpf Ur Squamous Epith Cells 30-40 H (0-5) /hpf Calcium Oxalate Crystal Few H (NONE) Urine Bacteria Few (FEW) /hpf Urine Mucus Many H (FEW) /hpf Meds: Medications Discontinued Medications Generic Name Dose Route Start Last Admin Trade Name Jacoboq PRN Reason Stop Dose Admin Hydromorphone HCl 1 mg 09/30/20 17:41 09/30/20 18:04 Dilaudid IM 09/30/20 17:42 1 mg ONETIME ONE Administration Influenza Virus Vaccine 60 mcg 09/30/20 17:30 09/30/20 17:38 Fluzone Quad [id number] Syringe IM 09/30/20 17:31 60 mcg .ONCE ONE Administration Magnesium Citrate 296 ml 09/30/20 19:19 Citrate Of Magnesia PO 09/30/20 19:20 ONETIME ONE Ondansetron HCl 4 mg 09/30/20 17:42 09/30/20 18:03 Zofran Odt PO 09/30/20 17:43 4 mg ONETIME ONE Administration - Re-Assessments/Exams Free Text/Narrative Re-Assessment/Exam: 09/30/20 17:44 Patient presents to the ED for the evaluation of her low abdomen pain. We will get a urinalysis for today's purposes, she will get 1 mg IM Dilaudid and 4 mg ODT Zofran initially for pain management. We will entertain the possibility of CT after urine results have been completed. 09/30/20 19:14 Patient's urinalysis demonstrates slightly cloudy urine, 5-10 RBCs per high- power field, 0-5 white blood cells per high-power field. 30-40 squamous epithelial cells per high-power field, few bacteria, some calcium oxalate crystals, some mucus, leukocyte Estrace was negative and nitrite negative. CT demonstrated a stone within the right kidney itself, but no ureteral stones. The urinalysis is more consistent with a contamination. The patient's CT also demonstrated she had quite a bit of stool throughout her colon. This is not remarked on the report. We will send the patient home with a bottle of mag citrate. Departure - Departure Time of Disposition: 19:19 Disposition: Home, Self-Care 01 Condition: Good Clinical Impression: Constipation Qualifiers: Constipation type: other constipation type Qualified Code(s): K59.09 - Other constipation - Discharge Information *PRESCRIPTION DRUG MONITORING PROGRAM REVIEWED*: No *COPY OF PRESCRIPTION DRUG MONITORING REPORT IN PATIENT AMERICO: No Instructions: Constipation, Adult, [id number] Referrals: Horacio Washington PA-C [Primary Care Provider] - Forms: ED Department Discharge Additional Instructions: You were evaluated in the ER today for your ongoing abdomen pain. Your urinalysis did not demonstrate any acute sign of a bladder infection at this time. Your urine was sent for culture for confirmation, as it did appear to have a little bit of contamination from skin cells. You will be called to be notified if you should need antibiotics. Your CT did show that you had 1 stone within your right kidney, but none within your ureters that would be causing the pain today. Your CT also demonstrated had a quite a bit of stool throughout your colon which is consistent with constipation. You have been given a bottle of mag citrate, please take one half bottle, if you not have a rather large bowel movement in a few hours, continue with the last half bottle. You may take 500 mg Tylenol or 600 mg ibuprofen every 6 hours as needed for further pain relief. Do not exceed 4000 mg Tylenol or 3200 mg ibuprofen in a 24-hour time span. Please return to the ER at any time if symptoms change or worsen. Sepsis Event Note (ED) - Evaluation Sepsis Screening Result: No Definite Risk - Focused Exam Vital Signs: Vital Signs Temp Pulse Resp BP Pulse Ox 09/30/20 16:45 97.6 F 73 18 132/75 96 - My Orders Last 24 Hours: My Active Orders 09/30/20 16:51 Influenza Vaccine Charge [RC] .DISCHARGE 09/30/20 18:22 Abdomen Pelvis wo Cont [CT] Stat 09/30/20 19:02 CULTURE URINE [RM] Routine - Assessment/Plan Last 24 Hours: My Active Orders 09/30/20 16:51 Influenza Vaccine Charge [RC] .DISCHARGE 09/30/20 18:22 Abdomen Pelvis wo Cont [CT] Stat 09/30/20 19:02 CULTURE URINE [RM] Routine
[2020-09-30] MEDS ORDERED: Magnesium Citrate Solution 296 ML Bottle PO ONE (19:19)
--- NOTE | 2020-10-01 09:22 | CT ---
"PROCEDURE INFORMATION: Exam: CT Abdomen And Pelvis Without Contrast Exam date and time: 09/30/2020 7:25 PM Age: 39 years old Clinical indication: Abdominal pain; Flank; Other: Both rlq and llq TECHNIQUE: Imaging protocol: Computed tomography of the abdomen and pelvis without contrast. COMPARISON: CT Abdomen Pelvis w Cont 01/18/2020 8:51 AM FINDINGS: Lungs: Unremarkable.No mass or nodule. Liver: Enlarged fatty liver. No focal abnormality. Gallbladder and bile ducts: Normal. No calcified stones. No ductal dilation. Pancreas: Normal. No ductal dilation. Spleen: Normal. No splenomegaly. Adrenal glands: Normal. No mass. Kidneys and ureters: Kidneys: Mild right-sided nephrolithiasis. No obstructing calculus. No hydronephrosis. Stomach and bowel: Unremarkable. No obstruction. No mucosal thickening. Appendix: No evidence of appendicitis. Probable appendectomy. Intraperitoneal space: Unremarkable. No free air. No significant fluid collection. Vasculature: Unremarkable. No abdominal aortic aneurysm. Lymph nodes: Unremarkable. No enlarged lymph nodes. Urinary bladder: Unremarkable as visualized. Reproductive: Hysterectomy. Bones/joints: Unremarkable. No acute fracture. Soft tissues: Unremarkable. IMPRESSION: DANIELFebruary | Final Radiology Report CONFIDENTIALITY STATEMENT This report is intended only for use by the referring physician, and only in accordance with law. If you received this in error, call [phone]. Page 2 of 2 1. Mildly enlarged fatty liver. 2. Nonobstructive right-sided nephrolithiasis. 3. No acute abdominal or pelvic findings identified. Thank you for allowing us to participate in the care of your patient. Dictated and Authenticated by: Domingo Pineda MD 09/30/2020 8:02 PM Central Time ([place] & [place]) RAMON"
== END 2020-09-30 19:30 | disposition home or self-care (01) ==
LOC: JD.ED 16:32
DX: K59.09 Other constipation (principal); E78.00 Pure hypercholesterolemia, unspecified; J45.909 Unspecified asthma, uncomplicated; F32.9 Major depressive disorder, single episode, unspecified; E11.9 Type 2 diabetes mellitus without complications; Z79.84 Long term (current) use of oral hypoglycemic drugs; E66.9 Obesity, unspecified; Z68.35 Body mass index [BMI] 35.0-35.9, adult; Z91.030 Bee allergy status; Z88.8 Allergy status to other drugs, medicaments and biological substances; Z87.891 Personal history of nicotine dependence
CPT/HCPCS: 74176; 81001; 87086; 90471; 90686; 96372; 99284; A9270; J1170; G0008

== ENCOUNTER 2020-10-15 20:12 | Emergency (ER) | payer MEDICAID ==
--- NOTE | 2020-10-15 20:32 | EDM.PDOC ---
ED HPI GENERAL MEDICAL PROBLEM - General Chief Complaint: Back Pain or Injury Stated Complaint: BOTH HIPS AND LOWER BACK HURT Time Seen by Provider: 10/15/20 20:31 - History of Present Illness INITIAL COMMENTS - FREE TEXT/NARRATIVE: 39-year-old female presents the emergency room with low back pain. Patient denies any recent trauma injury or overuse scenario. Her pain just developed over the last 24 hours. It is in the low back and goes into both hips and towards the posterior aspect of her legs but does not extend much beyond the hips. Patient has not had any burning or frequency with urination however she is a type II diabetic. Patient suffers from obesity and has a family history of back problems. The patient has no history of pain extending down the back of her legs any lower than this or into her lower leg or feet. She had no loss of bowel or bladder control. Back Pain Score (Numeric/FACES): 9 - Related Data Allergies Allergy/AdvReac Type Severity Reaction Status Date / Time bee venom protein (honey bee) Allergy Severe Airway Verified 10/15/20 20:37 Tightness pseudoephedrine AdvReac Mild Drowsiness Verified 10/15/20 20:37 [From DayQuil Sinus Pressure/Pain] Home Meds: Home Meds metFORMIN HCl [Metformin HCl] 1,000 mg PO BID 12/26/18 [History] Rosuvastatin Calcium 10 mg PO DAILY 01/28/20 [History] Sertraline [Zoloft] 100 mg PO DAILY 03/09/20 [History] hydrOXYzine HCL [hydrOXYzine] 100 mg PO BEDTIME 03/09/20 [History] Cyclobenzaprine [Flexeril] 10 mg PO DAILY #6 tab 10/15/20 [Rx] Past Medical History HEENT History: Reports: Allergic Rhinitis, Impaired Vision Other HEENT History: wears glasses Cardiovascular History: Reports: High Cholesterol Respiratory History: Reports: Asthma Other Respiratory History: pleural effusion Gastrointestinal History: Reports: Chronic Constipation Genitourinary History: Reports: Renal Calculus, Urinary Incontinence LOAD BUILDER History: Reports: Endometriosis, , Other (See Below) Other LOAD BUILDER History: vaginosis, adenomyosis, endometriosis, nipple discharge Musculoskeletal History: Reports: Back Pain, Chronic Other Musculoskeletal History: degenerative disc disease Neurological History: Reports: Seizure Other Neuro History: EEG done and pt doesn't need to take seizure meds Psychiatric History: Reports: Addiction, Depression Endocrine/Metabolic History: Reports: Diabetes, Type II, Obesity/BMI 30+ Hematologic History: Reports: None Immunologic History: Reports: None Oncologic (Cancer) History: Reports: None Dermatologic History: Reports: None - Infectious Disease History Infectious Disease History: Reports: Novel Coronavirus Other Infectious Disease History: 5-6 yrs ago diagnosed. has not been tested but has had several surgeries since - Past Surgical History Head Surgeries/Procedures: Reports: None HEENT Surgical History: Reports: Oral Surgery, Tonsillectomy GI Surgical History: Reports: Appendectomy Female Surgical History: Reports: Hysterectomy, Tubal Ligation Musculoskeletal Surgical History: Reports: Other (See Below) Other Musculoskeletal Surgeries/Procedures:: surgery on both feet Oncologic Surgical History: Reports: None Dermatological Surgical History: Reports: None Social & Family History - Family History Family Medical History: No Pertinent Family History - Caffeine Use Caffeine Use: Reports: Coffee, Soda - Living Situation & Occupation Living situation: Reports: , with Significant Other (Fiance), with Family (Son) Occupation: Employed ([employer]) ED ROS GENERAL - Review of Systems Review Of Systems: See Below Constitutional: Reports: No Symptoms. Denies: Fever, Chills HEENT: Reports: No Symptoms Respiratory: Reports: No Symptoms Cardiovascular: Reports: No Symptoms Endocrine: Reports: No Symptoms GI/Abdominal: Reports: No Symptoms : Reports: No Symptoms Musculoskeletal: Reports: Back Pain Skin: Reports: No Symptoms Neurological: Reports: No Symptoms ED EXAM, GENERAL - Physical Exam Exam: See Below Exam Limited By: No Limitations General Appearance: Alert, No Apparent Distress, Obese Head: Atraumatic, Normocephalic Neck: Normal Inspection, Supple, Non-Tender, Full Range of Motion Respiratory/Chest: No Respiratory Distress, Lungs Clear, Normal Breath Sounds Cardiovascular: Regular Rate, Rhythm, No Edema, No Murmur GI/Abdominal: Normal Bowel Sounds, Soft, Non-Tender Back Exam: Other (Tenderness in the lower lumbar region extending into the bu ttocks bilaterally does not seem to favor one side or the other. She has no posterior thigh tenderness). No: Vertebral Tenderness Extremities: Normal Inspection, Non-Tender, No Pedal Edema Neurological: Alert, Oriented, Normal Cognition Course - Vital Signs Last Recorded V/S: Last Vital Signs Temp 36.2 C 10/15/20 20:33 Pulse 81 10/15/20 20:33 Resp 20 10/15/20 20:33 BP 136/84 10/15/20 20:33 Pulse Ox 96 10/15/20 20:33 - Orders/Labs/Meds Labs: Laboratory Tests 10/15/20 Range/Units 20:45 Urine Color Yellow (Yellow) Urine Appearance Clear (Clear) Urine pH 6.5 (5.0-8.0) Ur Specific [place] > or = 1.030 (1.005-1.030) Urine Protein Negative (Negative) Urine Glucose (UA) Negative (Negative) Urine Ketones Negative (Negative) Urine Occult Blood Trace-intact H (Negative) Urine Nitrite Negative (Negative) Urine Bilirubin Negative (Negative) Urine Urobilinogen 0.2 (0.2-1.0) Ur Leukocyte Esterase Negative (Negative) Urine RBC Not seen (0-5) /hpf Urine WBC 0-5 (0-5) /hpf Ur Squamous Epith Cells 30-40 H (0-5) /hpf Calcium Oxalate Crystal Few H (NONE) Urine Bacteria Rare (FEW) /hpf Urine Mucus Moderate H (FEW) /hpf Meds: Medications Discontinued Medications Generic Name Dose Route Start Last Admin Trade Name Freq PRN Reason Stop Dose Admin Cyclobenzaprine HCl 10 mg 10/15/20 21:04 10/15/20 21:11 Flexeril PO 10/15/20 21:05 10 mg ONETIME ONE Administration - Re-Assessments/Exams Free Text/Narrative Re-Assessment/Exam: 10/15/20 21:25 Urinalysis is not suggestive of infectious process. We will discharge at this time Departure - Departure Time of Disposition: 21:26 Disposition: Home, Self-Care 01 Clinical Impression: Low back strain - Discharge Information Referrals: Horacio Washington PA-C [Primary Care Provider] - Forms: ED Department Discharge Additional Instructions: Return to the emergency room with any questions problems worsening symptoms. Continue Tylenol as needed for aches and discomfort. Use Flexeril 1 in the evenings for the next few days allow 12 hours after using this medication before driving or returning to work. Follow-up in the clinic at the end of this week for recheck. Sepsis Event Note (ED) - Focused Exam Vital Signs: Vital Signs Temp Pulse Resp BP Pulse Ox 10/15/20 20:33 36.2 C 81 20 136/84 96
[2020-10-15] MEDS ORDERED: Cyclobenzaprine 10 MG Tab PO ONE (21:04)
== END 2020-10-15 21:35 | disposition home or self-care (01) ==
LOC: JD.ED 20:12
DX: S39.012A Strain of muscle, fascia and tendon of lower back, initial encounter (principal); E78.00 Pure hypercholesterolemia, unspecified; J45.909 Unspecified asthma, uncomplicated; F32.9 Major depressive disorder, single episode, unspecified; E11.9 Type 2 diabetes mellitus without complications; E66.9 Obesity, unspecified; Z68.39 Body mass index [BMI] 39.0-39.9, adult; Z91.030 Bee allergy status; Z88.8 Allergy status to other drugs, medicaments and biological substances; Z79.899 Other long term (current) drug therapy
CPT/HCPCS: 81001; 99283; A9270

== ENCOUNTER 2021-01-17 00:33 | Emergency (ER) | payer MEDICAID ==
[2021-01-17] MEDS ORDERED: Orphenadrine 100 MG Tab.ER PO STA (03:04)
[2021-01-17] MEDS ORDERED: Ibuprofen 600 MG Tab PO ONE (03:04)
[2021-01-17] MEDS ORDERED: Ondansetron 4 MG Tab.DIS PO ONE (03:04)
--- NOTE | 2021-01-17 03:10 | EDM.PDOC ---
ED HPI GENERAL MEDICAL PROBLEM - General Chief Complaint: General Stated Complaint: HEAD,SHOULDER,BACK PAIN FROM FALL Time Seen by Provider: 01/17/21 01:11 Source of Information: Reports: Patient, Significant Other (Fianc) History Limitations: Reports: No Limitations - History of Present Illness INITIAL COMMENTS - FREE TEXT/NARRATIVE: Ms. Cordoba is a pleasant 40-year-old woman who now presents the ED stating that she slipped and fell while playing with her dog around 11 PM this past 01/15/2021, striking the back of her head, left shoulder, and back. She denies suffering loss of consciousness, but since then, she states that she has developed nausea, and vomited twice yesterday, , 01/16/2021. She reports having pain to the back of her head, inadequately relieved by [id number] Tylenol. Here in the ED, the patient's initial BP was slightly elevated at 136/93, otherwise, she is hemodynamically stable, afebrile, saturating 100% on room air. Prior to Wednesday night, the patient denies having a recent fever, chills, sore throat, ear pain, nasal or sinus congestion, cough, dyspnea, chest pain, palpitations, nausea, vomiting, constipation, diarrhea, abdominal pain, urinary symptoms, recent weight gain or weight loss, recent bloody bowel movements or black bowel movements, recent joint aches, headaches, or rashes. The patient's PCP is LITTLE Cabrera. She states that she has already received an influenza vaccine this season. Posterior Head Pain Score (Numeric/FACES): 8 Left Shoulder Pain Score (Numeric/FACES): 4 - Related Data Allergies Allergy/AdvReac Type Severity Reaction Status Date / Time bee venom protein (honey bee) Allergy Severe Airway Verified 01/17/21 00:56 Tightness pseudoephedrine AdvReac Mild Drowsiness Verified 01/17/21 00:56 [From DayQuil Sinus Pressure/Pain] Home Meds: Home Meds metFORMIN HCl [Metformin HCl] 1,000 mg PO BID 12/26/18 [History] Rosuvastatin Calcium 10 mg PO DAILY 01/28/20 [History] Sertraline [Zoloft] 100 mg PO DAILY 03/09/20 [History] hydrOXYzine HCL [hydrOXYzine] 100 mg PO BEDTIME 03/09/20 [History] Ondansetron [Zofran ODT] 1 tab PO Q8H PRN #10 tab.dis 01/17/21 [Rx] Orphenadrine [Norflex] 1 tab PO Q12H PRN #10 tab 01/17/21 [Rx] Past Medical History HEENT History: Reports: Allergic Rhinitis, Impaired Vision (wears glasses) Cardiovascular History: Reports: High Cholesterol Respiratory History: Reports: Asthma (suspected, not PFT-tested) Genitourinary History: Reports: Renal Calculus, Urinary Incontinence (stress incontinence) 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: Endometriosis (suspected, not laparoscopy confirmed) Musculoskeletal History: Reports: Back Pain, Chronic (due to DDD) Neurological History: Reports: Seizure (alcohol-related only) Psychiatric History: Reports: Addiction (alcohol), Anxiety, Depression Endocrine/Metabolic History: Reports: Diabetes, Type II, Obesity/BMI 30+ - Infectious Disease History Infectious Disease History: Reports: Novel Coronavirus - Past Surgical History HEENT Surgical History: Reports: Oral Surgery (dental extractions/dentures) GI Surgical History: Reports: Appendectomy Female Surgical History: Reports: Hysterectomy (complete), Tubal Ligation Musculoskeletal Surgical History: Reports: Other (See Below) (Bilateral feet fusion) Social & Family History - Tobacco Use Tobacco Use Status *Q: Former Tobacco User Years of Tobacco use: 23 Packs/Tins Daily: 2 Month/Year Tobacco Last Used: Quit Feb 2019 - Caffeine Use Caffeine Use: Reports: Coffee, Soda - Alcohol Use Alcohol Use History: Yes Date/Time of Last Drink Comment: Alcoholic - sober since Jun 2019 - Recreational Drug Use Recreational Drug Use: Yes Drug Use in Last 12 Months: Yes Recreational Drug Type: Reports: Marijuana/Hashish (smokes about 2x/wk), Methamphetamine (last snorted 2006) - Living Situation & Occupation Living situation: Reports: , with Significant Other (Fiance), with Family (Son) Occupation: Employed ([employer]) ED ROS GENERAL - Review of Systems Review Of Systems: Comprehensive ROS is negative, except as noted in HPI. ED EXAM, GENERAL - Physical Exam Exam: See Below Exam Limited By: No Limitations General Appearance: Alert, WD/WN, No Apparent Distress Eye Exam: Bilateral Eye: EOMI, Normal Inspection, PERRL Ears: Normal External Exam, Normal Canal, Hearing Grossly Normal, Normal TMs Nose: Normal Inspection, Normal Mucosa, No Blood Throat/Mouth: Normal Inspection, Normal Lips, Normal Teeth, Normal Gums, Normal Oropharynx, Normal Voice, No Airway Compromise Head: Atraumatic (no visible or palpable abnormality to the posterior scalp, such as swelling, erythema, ecchymosis, or abrasion), Normocephalic Neck: Normal Inspection, Supple, Non-Tender, Full Range of Motion Respiratory/Chest: No Respiratory Distress, Lungs Clear, Normal Breath Sounds, No Accessory Muscle Use Cardiovascular: Normal Peripheral Pulses, Regular Rate, Rhythm, No Gallop, No JVD, No Murmur, No Rub Peripheral Pulses: 3+: Radial (L), Radial (R) GI/Abdominal: Normal Bowel Sounds, Soft, Non-Tender, No Organomegaly, No Distention, No Abnormal Bruit, No Mass Back Exam: Normal Inspection, Full Range of Motion, NT Extremities: Normal Inspection, Normal Range of Motion, No Pedal Edema, Normal Capillary Refill Neurological: Alert, Oriented, CN II-XII Intact, Normal Cognition, No Motor/Sensory Deficits Psychiatric: Normal Affect Skin Exam: Warm, Dry, Intact, Normal Color, No Rash Course - Vital Signs Last Recorded V/S: Last Vital Signs Temp 35.9 C L 01/17/21 00:50 Pulse 72 01/17/21 00:50 Resp 20 01/17/21 00:50 BP 136/93 H 01/17/21 00:50 Pulse Ox 100 01/17/21 00:50 - Re-Assessments/Exams Free Text/Narrative Re-Assessment/Exam: 01/17/21 03:05 As above, the patient slipped and fell at home this past Wednesday night, striking the back of her head, left shoulder, and back. There was no loss of consciousness, but she has been experiencing nausea and 2 episodes of emesis. Her physical exam, including a thorough neurologic examination, is completely normal. Unfortunately, the patient does not meet NICE criterion for a CT scan of her head without contrast. This was explained to the patient, who expressed understanding. The patient will be treated with Norflex, ibuprofen, and Zofran, and I will discharge her home with prescriptions for both Norflex and Zofran. The patient requested a note for work. Departure - Departure Time of Disposition: 03:07 Disposition: Home, Self-Care 01 Condition: Good Clinical Impression: Fall at home, Tension type headache, Muscle strain - Discharge Information *PRESCRIPTION DRUG MONITORING PROGRAM REVIEWED*: Not Applicable *COPY OF PRESCRIPTION DRUG MONITORING REPORT IN PATIENT AMERICO: Not Applicable Prescriptions: Orphenadrine [Norflex] 1 tab PO Q12H PRN #10 tab PRN Reason: Muscle Spasm Ondansetron [Zofran ODT] 1 tab PO Q8H PRN #10 tab.dis PRN Reason: Nausea/Vomiting Referrals: Horacio Washington PA-C [Primary Care Provider] - Forms: ED Department Discharge, ED Return to Work/School Form Additional Instructions: You were seen in the emergency room after slipping and falling on Wednesday night, injuring the back of your head, your left shoulder, and back. Since then, you have experienced a headache with nausea with vomiting. Based on your history and physical examination, your headache is most likely due to a tension type headache. You have been started on the muscle relaxant Norflex in the interim-nausea medicine Zofran, along with ibuprofen, and you have been given prescriptions for both Norflex and Zofran. Take 1 tablet of Norflex every 12 hours, starting this evening, 01/17/2021, as prescribed. Norflex works well with ibuprofen. You may take 3 tablets (600 mg) of [id number] ibuprofen up to every 8 hours, with food, as needed for pain. You may dissolve 1 tablet of Zofran on your tongue up to every 8 hours, as needed for nausea/vomiting. It is very important that you stay active. A note to be off work through 01/20/2021 has been provided to you. If any other problems, please do not hesitate to return to the ER. Sepsis Event Note (ED) - Evaluation Sepsis Screening Result: No Definite Risk - Focused Exam Vital Signs: Vital Signs Temp Pulse Resp BP Pulse Ox 01/17/21 00:50 35.9 C L 72 20 136/93 H 100
== END 2021-01-17 03:27 | disposition home or self-care (01) ==
LOC: JD.ED 00:33
DX: S46.912A Strain of unspecified muscle, fascia and tendon at shoulder and upper arm level, left arm, initial encounter (principal); S39.012A Strain of muscle, fascia and tendon of lower back, initial encounter; G44.209 Tension-type headache, unspecified, not intractable; E78.00 Pure hypercholesterolemia, unspecified; J45.909 Unspecified asthma, uncomplicated; E11.9 Type 2 diabetes mellitus without complications; E66.9 Obesity, unspecified; Z91.030 Bee allergy status; Z88.8 Allergy status to other drugs, medicaments and biological substances; Z79.84 Long term (current) use of oral hypoglycemic drugs; Z87.891 Personal history of nicotine dependence; Z79.899 Other long term (current) drug therapy; W01.0XXA Fall on same level from slipping, tripping and stumbling without subsequent striking against object, initial encounter; Y92.009 Unspecified place in unspecified non-institutional (private) residence as the place of occurrence of the external cause
CPT/HCPCS: 99283; A9270; 99284

== ENCOUNTER 2021-03-21 00:37 | Emergency (ER) | payer MEDICAID ==
--- NOTE | 2021-03-21 01:10 | EDM.PDOC ---
ED HPI GENERAL MEDICAL PROBLEM - General Chief Complaint: Lower Extremity Injury/Pain Stated Complaint: LEFT HIP PAIN Time Seen by Provider: 03/21/21 00:52 Source of Information: Reports: Patient History Limitations: Reports: No Limitations - History of Present Illness INITIAL COMMENTS - FREE TEXT/NARRATIVE: The patient presents with left hip pain. Three nights ago she fell out of bed and hit her head and landed on her left hip. She can walk on it but it hurts. The pain radiated down to her left knee and groin. She has some ecchymosis to her right arm. She had no LOC when she fell. She has no neck pain, chest pain or abdominal pain. 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 Left Hip Pain Score (Numeric/FACES): 8 Left Groin Pain Score (Numeric/FACES): 8 - Related Data Allergies Allergy/AdvReac Type Severity Reaction Status Date / Time bee venom protein (honey bee) Allergy Severe Airway Verified 03/21/21 00:46 Tightness pseudoephedrine AdvReac Mild Drowsiness Verified 03/21/21 00:46 [From DayQuil Sinus Pressure/Pain] Home Meds: Home Meds metFORMIN HCl [Metformin HCl] 1,000 mg PO BID 12/26/18 [History] Rosuvastatin Calcium 10 mg PO DAILY 01/28/20 [History] Sertraline [Zoloft] 100 mg PO DAILY 03/09/20 [History] hydrOXYzine HCL [hydrOXYzine] 100 mg PO BEDTIME 03/09/20 [History] Ondansetron [Zofran ODT] 1 tab PO Q8H PRN #10 tab.dis 01/17/21 [Rx] Orphenadrine [Norflex] 1 tab PO Q12H PRN #10 tab 01/17/21 [Rx] Past Medical History HEENT History: Reports: Allergic Rhinitis, Impaired Vision Other HEENT History: wears glasses Cardiovascular History: Reports: High Cholesterol Respiratory History: Reports: Asthma Other Respiratory History: pleural effusion Gastrointestinal History: Reports: Chronic Constipation Genitourinary History: Reports: Renal Calculus, Urinary Incontinence 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: Endometriosis 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 GENERAL LEDGER ACCOUNTANT History: vaginosis, adenomyosis, endometriosis, nipple discharge Musculoskeletal History: Reports: Back Pain, Chronic Other Musculoskeletal History: degenerative disc disease Neurological History: Reports: Seizure Other Neuro History: EEG done and pt doesn't need to take seizure meds Psychiatric History: Reports: Addiction, Anxiety, Depression Endocrine/Metabolic History: Reports: Diabetes, Type II, Obesity/BMI 30+ Hematologic History: Reports: None Immunologic History: Reports: None Oncologic (Cancer) History: Reports: None Dermatologic History: Reports: None - Infectious Disease History Infectious Disease History: Reports: Chicken Pox, Influenza, Novel Coronavirus Other Infectious Disease History: 5-6 yrs ago diagnosed. has not been tested but has had several surgeries since - Past Surgical History Head Surgeries/Procedures: Reports: None HEENT Surgical History: Reports: Oral Surgery Cardiovascular Surgical History: Reports: None Respiratory Surgical History: Reports: None GI Surgical History: Reports: Appendectomy Female Surgical History: Reports: Hysterectomy, Tubal Ligation Endocrine Surgical History: Reports: None Neurological Surgical History: Reports: None Musculoskeletal Surgical History: Reports: Other (See Below) Other Musculoskeletal Surgeries/Procedures:: surgery on both feet Oncologic Surgical History: Reports: None Dermatological Surgical History: Reports: None Social & Family History - Family History Family Medical History: No Pertinent Family History - Tobacco Use Tobacco Use Status *Q: Former Tobacco User Years of Tobacco use: 15 Packs/Tins Daily: 1.5 Used Tobacco, but Quit: Yes Month/Year Tobacco Last Used: 11/2013 Second Hand Smoke Exposure: Yes - Caffeine Use Caffeine Use: Reports: Coffee, Energy Drinks, Soda, Tea - Recreational Drug Use Recreational Drug Use: Yes Drug Use in Last 12 Months: Yes Recreational Drug Type: Reports: Marijuana/Hashish Recreational Drug Use Frequency: Weekly - Living Situation & Occupation Living situation: Reports: , with Significant Other (Fiance), with Family (Son) Occupation: Employed ([employer]) Review of Systems - Review of Systems Review Of Systems: See Below Constitutional: Reports: No Symptoms Eyes: Reports: No Symptoms Ears: Reports: No Symptoms Nose: Reports: No Symptoms Mouth/Throat: Reports: No Symptoms Respiratory: Reports: No Symptoms Cardiovascular: Reports: No Symptoms GI/Abdominal: Reports: No Symptoms Genitourinary: Reports: No Symptoms Musculoskeletal: Reports: Other (left hip pain) ED EXAM, GENERAL - Physical Exam Exam: See Below Exam Limited By: No Limitations General Appearance: Alert, No Apparent Distress Ears: Normal External Exam Nose: Normal Inspection Head: Atraumatic, Normocephalic Neck: Normal Inspection, Supple, Non-Tender Respiratory/Chest: No Respiratory Distress, Lungs Clear, Normal Breath Sounds Cardiovascular: Regular Rate, Rhythm, No Edema, No Murmur GI/Abdominal: Soft, Non-Tender, No Organomegaly, No Mass Extremities: Other (Pain upon palpation to the left hip. Good sensation and pulses distally. Some ecchymosis to the inner upper arm.) Neurological: Alert, Oriented, No Motor/Sensory Deficits Course - Vital Signs Last Recorded V/S: Last Vital Signs Temp 96.2 F L 03/21/21 00:49 Pulse 85 03/21/21 00:49 Resp 18 03/21/21 00:49 BP 123/68 03/21/21 00:49 Pulse Ox 98 03/21/21 00:49 - Orders/Labs/Meds Orders: Active Orders 24 hr Category Date Time Status Hip Min 2V or 3V w Pelvis Lt [CR] Stat Exams 03/21/21 01:05 Taken - Re-Assessments/Exams Free Text/Narrative Re-Assessment/Exam: 03/21/21 01:10 I ordered an x-ray of her left hip. 03/21/21 01:41 The x-ray looks good. I will discharge her home. Departure - Departure Time of Disposition: 13:45 Disposition: Home, Self-Care 01 Condition: Good Clinical Impression: Fall Qualifiers: Encounter type: initial encounter Qualified Code(s): W19.XXXA - Unspecified fall, initial encounter - Discharge Information *PRESCRIPTION DRUG MONITORING PROGRAM REVIEWED*: Not Applicable *COPY OF PRESCRIPTION DRUG MONITORING REPORT IN PATIENT AMERICO: Not Applicable Referrals: Horacio Washington PA-C [Primary Care Provider] - Forms: ED Department Discharge, ED Return to Work/School Form Additional Instructions: Take tylenol or motrin for pain. Ice your hip for 15 minutes 3 times per day for 2 days. Try to get some rest today. Follow up with your doctor if you are not better. Sepsis Event Note (ED) - Evaluation Sepsis Screening Result: No Definite Risk - Focused Exam Vital Signs: Vital Signs Temp Pulse Resp BP Pulse Ox 03/21/21 00:49 96.2 F L 85 18 123/68 98 - My Orders Last 24 Hours: My Active Orders 03/21/21 01:05 Hip Min 2V or 3V w Pelvis Lt [CR] Stat - Assessment/Plan Last 24 Hours: My Active Orders 03/21/21 01:05 Hip Min 2V or 3V w Pelvis Lt [CR] Stat
--- NOTE | 2021-03-21 09:18 | CR ---
Pelvis and left hip: AP view of the pelvis was obtained as well as AP and frog-leg lateral views of the left hip. Comparison: No prior pelvis or left hip radiographic study is available. Joint spaces within both hips appear maintained. Slight sclerosis is noted around the left sacroiliac joint possibly due to early degenerative change. No acute fracture or other abnormality is appreciated. Impression: 1. Slight sclerosis around the left sacroiliac joint possibly due to early degenerative change. 2. Nothing acute is otherwise seen on AP pelvis or 2 view left hip exam. Diagnostic code #2
== END 2021-03-21 01:49 | disposition home or self-care (01) ==
LOC: JD.ED 00:37
DX: S40.021A Contusion of right upper arm, initial encounter (principal); M25.552 Pain in left hip; E78.00 Pure hypercholesterolemia, unspecified; J45.909 Unspecified asthma, uncomplicated; E11.9 Type 2 diabetes mellitus without complications; E66.9 Obesity, unspecified; Z68.41 Body mass index [BMI] 40.0-44.9, adult; Z91.030 Bee allergy status; Z79.84 Long term (current) use of oral hypoglycemic drugs; Z88.8 Allergy status to other drugs, medicaments and biological substances; Z87.891 Personal history of nicotine dependence; W06.XXXA Fall from bed, initial encounter
CPT/HCPCS: 73502-26-LT; 73502-LT; 99282; 99283

== ENCOUNTER 2021-05-01 17:44 | Emergency (ER) | payer MEDICAID ==
[2021-05-01] MEDS ORDERED: Sodium Chloride 0.9% 10 ML Syringe FLUSH PRN (18:45)
[2021-05-01] MEDS ORDERED: Sodium Chloride 0.9% 1,000 ML IV ONE (18:47)
[2021-05-01] MEDS ORDERED: Ketorolac 30 MG/ML SDV IVPUSH ONE (18:56)
[2021-05-01] MEDS ORDERED: Ondansetron 4 MG/2 ML SDV IVPUSH ONE (18:56)
--- NOTE | 2021-05-01 19:03 | EDM.PDOC ---
ED HPI GENERAL MEDICAL PROBLEM - General Chief Complaint: Syncope Stated Complaint: SYNCOPE Time Seen by Provider: 05/01/21 18:44 Source of Information: Reports: Patient, RN Notes Reviewed History Limitations: Reports: No Limitations - History of Present Illness INITIAL COMMENTS - FREE TEXT/NARRATIVE: Patient is a 40-year-old female who presents to the ER for the evaluation of a syncopal episode. Patient states she was at work at [employer], when she passed out when she was standing up. She relates this more to being a blackout episode, she is not really sure how long she passed out for. She did not fall down at all. This is happened to her in the past, when she has been dehydrated. She notes that obviously it has been warmer out, but she has been trying to keep hydrated with fluids however she does not think that she is peeing as much as she normally does today. She does have a history of diabetes, but she does not take her Metformin for this. Blood sugar after her syncopal episode was 160. She does have a headache, it within the temples of her head, some slight dizziness lightheadedness. She did feel nauseous on the way to the ER, and did vomit once on the way here. She took some ibuprofen for the headache and this did not seem to help much either. Patient is alert and oriented x3. She has had no fevers or chills, cough or shortness of breath. Headache Pain Score (Numeric/FACES): 10 - Related Data Allergies Allergy/AdvReac Type Severity Reaction Status Date / Time bee venom protein (honey bee) Allergy Severe Airway Verified 05/01/21 18:38 Tightness pseudoephedrine AdvReac Mild Drowsiness Verified 05/01/21 18:38 [From DayQuil Sinus Pressure/Pain] Home Meds: Home Meds . 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: Reports: Endometriosis Other HOUSEKEEPING ROOM INSPECTOR History: vaginosis, adenomyosis, nipple discharge Musculoskeletal History: Reports: Back Pain, Chronic Other Musculoskeletal History: degenerative disc disease Neurological History: Reports: Seizure Other Neuro History: EEG done and pt doesn't need to take seizure meds Psychiatric History: Reports: Addiction, Anxiety, Depression Endocrine/Metabolic History: Reports: Diabetes, Type II, Obesity/BMI 30+ Hematologic History: Reports: None Immunologic History: Reports: None Oncologic (Cancer) History: Reports: None Dermatologic History: Reports: None - Infectious Disease History Infectious Disease History: Reports: Chicken Pox, Influenza, Novel Coronavirus (08/2020) - Past Surgical History HEENT Surgical History: Reports: Oral Surgery, Tonsillectomy GI Surgical History: Reports: Appendectomy Female Surgical History: Reports: Hysterectomy, Tubal Ligation Musculoskeletal Surgical History: Reports: Other (See Below) Other Musculoskeletal Surgeries/Procedures:: surgery on both feet Social & Family History - Family History Family Medical History: No Pertinent Family History - Tobacco Use Tobacco Use Status *Q: Never Tobacco User - Caffeine Use Caffeine Use: Reports: Coffee, Soda - Recreational Drug Use Recreational Drug Use: No - Living Situation & Occupation Living situation: Reports: , with Significant Other (Fiance), with Family (Son) Occupation: Employed ([employer]) ED ROS GENERAL - Review of Systems Review Of Systems: Comprehensive ROS is negative, except as noted in HPI. - Physical Exam Exam: See Below Exam Limited By: No Limitations General Appearance: Alert, WD/WN, No Apparent Distress Throat/Mouth: Normal Inspection, Normal Lips, Normal Teeth, Normal Gums, Normal Oropharynx, Normal Voice, No Airway Compromise Head Exam: Atraumatic, Normocephalic Neck: Normal Inspection Respiratory/Chest: No Respiratory Distress, Lungs Clear, Normal Breath Sounds, No Accessory Muscle Use, Chest Non-Tender Cardiovascular: Normal Peripheral Pulses, Regular Rate, Rhythm, No Edema GI/Abdominal: Normal Bowel Sounds, Soft, Non-Tender, No Distention, No Mass Neuro Exam (Abbreviated): Alert, Oriented, Normal Cognition, No Motor/Sensory Deficits Extremities: Normal Inspection, Normal Capillary Refill Psychiatric: Normal Affect, Normal Mood Skin Exam: Warm, Dry, Intact, Normal Color, No Rash #1 Interpretation EKG Date: 05/01/21 Time: 18:36 Rhythm: NSR Rate (Beats/Min): 78 [place]: Normal P-Wave: Present QRS: Normal ST-T: Normal QT: Normal EKG Interpretation Comments: No obvious ischemia or acute ST changes noted, reviewed by myself and Dr. Navarrete. Course - Vital Signs Last Recorded V/S: Last Vital Signs Temp 97.2 F 05/01/21 18:35 Pulse 79 05/01/21 18:35 Resp 16 05/01/21 18:35 BP 143/85 H 05/01/21 18:35 Pulse Ox 98 05/01/21 18:35 - Orders/Labs/Meds Orders: Active Orders 24 hr Category Date Time Status EKG Documentation Completion [RC] STAT Care 05/01/21 18:45 Ordered Holter Monitor 48 Hours [RC] .PRN Care 05/01/21 19:52 Ordered Peripheral IV Care [RC] . DIRECTED Care 05/01/21 18:45 Ordered Sodium Chloride 0.9% [Saline Flush] Med 05/01/21 18:45 Active 10 ml FLUSH ASDIRECTED PRN Peripheral IV Insertion Adult [OM.PC] Routine Oth 05/01/21 18:45 Ordered Medication Orders Sodium Chloride (Sodium Chloride 0.9% 10 Ml Syringe) 10 ml FLUSH ASDIRECTED PRN PRN Reason: Keep Vein Open Last Admin: 05/01/21 19:17 Dose: 10 ml Documented by: LASHON Labs: Laboratory Tests 05/01/21 05/01/21 Range/Units 18:40 18:40 WBC 9.21 (3.98-10.04) K/mm3 RBC 4.45 (3.98-5.22) M/mm3 Hgb 13.0 (11.2-15.7) gm/dl Hct 39.7 (34.1-44.9) % MCV 89.2 (79.4-94.8) fl MCH 29.2 (25.6-32.2) pg MCHC 32.7 (32.2-35.5) g/dl RDW Std Deviation 39.7 (36.4-46.3) fL Plt Count 328 (182-369) K/mm3 MPV 10.1 (9.4-12.3) fl Neut % (Auto) 49.6 (34.0-71.1) % Lymph % (Auto) 41.4 (19.3-51.7) % [place] % (Auto) 5.9 (4.7-12.5) % Eos % (Auto) 2.6 (0.7-5.8) Baso % (Auto) 0.3 (0.1-1.2) % Neut # (Auto) 4.57 (1.56-6.13) K/mm3 Lymph # (Auto) 3.81 H (1.18-3.74) K/mm3 [place] # (Auto) 0.54 H (0.24-0.36) K/mm3 Eos # (Auto) 0.24 (0.04-0.36) K/mm3 Baso # (Auto) 0.03 (0.01-0.08) K/mm3 Sodium 139 (136-145) mEq/L Potassium 3.2 L (3.5-5.1) mEq/L Chloride 104 (98-107) mEq/L Carbon Dioxide 25 (21-32) mEq/L Anion Gap 13.2 (5-15) BUN 12 (7-18) mg/dL Creatinine 0.8 (0.55-1.02) mg/dL Est Cr Clr Drug Dosing 86.63 mL/min Estimated GFR (MDRD) > 60 (>60) mL/min BUN/Creatinine Ratio 15.0 (14-18) Glucose 132 H (70-99) mg/dL Calcium 9.3 (8.5-10.1) mg/dL Magnesium 2.0 (1.8-2.4) mg/dL Total Bilirubin 0.5 (0.2-1.0) mg/dL AST 26 (15-37) U/L ALT 34 (14-59) U/L Alkaline Phosphatase 53 (46-116) U/L Troponin I < 0.017 (0.00-0.056) ng/mL Total Protein 8.0 (6.4-8.2) g/dl Albumin 4.1 (3.4-5.0) g/dl Globulin 3.9 gm/dL Albumin/Globulin Ratio 1.1 (1-2) Meds: Medications Generic Name Dose Route Start Last Admin Trade Name Freq PRN Reason Stop Dose Admin Sodium Chloride 10 ml 05/01/21 18:45 05/01/21 19:17 Sodium Chloride 0.9% 10 Ml Syringe FLUSH 10 ml ASDIRECTED PRN Administration Keep Vein Open Discontinued Medications Generic Name Dose Route Start Last Admin Trade Name Freq PRN Reason Stop Dose Admin Sodium Chloride 1,000 mls @ 999 mls/hr 05/01/21 18:47 05/01/21 19:16 Normal Saline IV 05/01/21 19:47 999 mls/hr ONETIME ONE Administration Ketorolac Tromethamine 30 mg 05/01/21 18:56 05/01/21 19:17 Ketorolac 30 Mg/Ml Sdv IVPUSH 05/01/21 18:57 30 mg ONETIME ONE Administration Ondansetron HCl 4 mg 05/01/21 18:56 05/01/21 19:17 Ondansetron 4 Mg/2 Ml Sdv IVPUSH 05/01/21 18:57 4 mg ONETIME ONE Administration Potassium Chloride 40 meq 05/01/21 19:35 05/01/21 19:52 Potassium Chloride 20 Meq Tab.Er PO 05/01/21 19:36 40 meq ONETIME ONE Administration - Re-Assessments/Exams Free Text/Narrative Re-Assessment/Exam: 05/01/21 19:02 Patient presents to the ER for her syncopal episode, we will get baseline labs, establish an IV, give her some fluids, Toradol, Zofran for her headache and n ausea. EKG done at time of triage demonstrates no acute ST abnormalities reviewed by myself and Dr. Navarrete. Likely the patient could have just had a spell where she was dehydrated, as the temperature has increased dramatically over the last few days in this area. 05/01/21 19:48 Patient's labs have resulted, CBC is unremarkable, CMP demonstrates a mildly low potassium at 3.2. We will reassess the patient and see how she is feeling, there is no clear etiology as to the cause of syncope as she is not severely dehydrated by lab standards. Will offer to do Holter monitor for cardiac abnormalities, and have her follow-up with her regular care provider. Departure - Departure Time of Disposition: 20:01 Disposition: Home, Self-Care 01 Condition: Good Clinical Impression: Episode of syncope Qualifiers: Syncope type: vasovagal syncope Qualified Code(s): R55 - Syncope and collapse - Discharge Information *PRESCRIPTION DRUG MONITORING PROGRAM REVIEWED*: No *COPY OF PRESCRIPTION DRUG MONITORING REPORT IN PATIENT AMERICO: No Instructions: Syncope, [id number] Referrals: PCP,None [Primary Care Provider] - Forms: ED Department Discharge Additional Instructions: You were evaluated in the ER today for your syncopal episode. Laboratory evaluation done at today's visit demonstrates only a slightly low potassium, which can be a normal variant when he did not eat enough potassium in your diet. You were given a one-time oral supplementation of this in the ER. You were given some IV fluids, and some medications for the headache and nausea you reported at today's visit. This seemed to help make you feel a little bit better. No clear etiology as to what would have caused the syncopal episode, you have been sent home with a Holter monitor for ambulatory cardiac monitoring, please wear this at all times for the next 48 hours and resume normal activities. You will need to follow-up with Horacio Washington, after you return the Holter monitor, please allow at least 1 week for follow-up clinic visit, so that the Holter monitor can be read by cardiology services in [facility] and return to your provider for their review. Please keep yourself well-hydrated over the next few days. Do not hesitate to return to the ER if your symptoms change or worsen. Sepsis Event Note (ED) - Evaluation Sepsis Screening Result: No Definite Risk - Focused Exam Vital Signs: Vital Signs Temp Pulse Resp BP Pulse Ox 05/01/21 18:35 97.2 F 79 16 143/85 H 98 - My Orders Last 24 Hours: My Active Orders 05/01/21 18:45 EKG Documentation Completion [RC] STAT Peripheral IV Care [RC] . DIRECTED Sodium Chloride 0.9% [Saline Flush] 10 ml FLUSH ASDIRECTED PRN Peripheral IV Insertion Adult [OM.PC] Routine 05/01/21 19:52 Holter Monitor 48 Hours [RC] .PRN - Assessment/Plan Last 24 Hours: My Active Orders 05/01/21 18:45 EKG Documentation Completion [RC] STAT Peripheral IV Care [RC] . DIRECTED Sodium Chloride 0.9% [Saline Flush] 10 ml FLUSH ASDIRECTED PRN Peripheral IV Insertion Adult [OM.PC] Routine 05/01/21 19:52 Holter Monitor 48 Hours [RC] .PRN
[2021-05-01] MEDS ORDERED: Potassium Chloride 20 MEQ Tab.ER PO ONE (19:35)
== END 2021-05-01 20:20 | disposition home or self-care (01) ==
LOC: JD.ED 17:44
DX: R55 Syncope and collapse (principal); E11.9 Type 2 diabetes mellitus without complications; E66.9 Obesity, unspecified; Z68.30 Body mass index [BMI] 30.0-30.9, adult; Z91.030 Bee allergy status; Z88.8 Allergy status to other drugs, medicaments and biological substances
CPT/HCPCS: 36415; 80053; 83735; 84484; 85025; 93005; 93225; 93226; 96374; 96375; 99284; A9270; J1885; J2405; J7030; 93010

== ENCOUNTER 2021-10-19 15:44 | Emergency (ER) | payer MEDICAID, OTHER ==
[2021-10-19] MEDS ORDERED: FLU Vacc QS2021-22 36MOS UP/PF 60 MCG/0.5 ML Syringe IM ONE (16:30)
[2021-10-19] MEDS ORDERED: HYDROmorphone 1 MG/ML Syringe IM ONE (18:06)
--- NOTE | 2021-10-19 18:20 | EDM.PDOC ---
ED HPI GENERAL MEDICAL PROBLEM - General Chief Complaint: Lower Extremity Injury/Pain Stated Complaint: KNEE PAIN Time Seen by Provider: 10/19/21 17:32 Source of Information: Reports: Patient History Limitations: Reports: No Limitations - History of Present Illness INITIAL COMMENTS - FREE TEXT/NARRATIVE: 40-year-old female presents the emergency department today with complaints of right knee pain. She states she was stepping out of her pickup truck approximately 5 days ago and noted an instant sharp pain to the anterior portion of her right kneecap. She states that the pain went away and then the right knee started popping and pain has worsened. She states pain has now radiates down her right posterior leg. She denies any previous injury to this extremity. He states she has been taking Tylenol and ibuprofen and it has not helped. Right Knee Pain Score (Numeric/FACES): 9 - Related Data Allergies Allergy/AdvReac Type Severity Reaction Status Date / Time bee venom protein (honey bee) Allergy Severe Airway Verified 10/19/21 16:14 Tightness pseudoephedrine AdvReac Mild Drowsiness Verified 10/19/21 16:14 [From DayQuil Sinus Pressure/Pain] Home Meds: Home Meds Albuterol Sulfate [Proair Hfa] 1 puff IH ASDIRECTED PRN 10/19/21 [History] Rosuvastatin [Crestor] 10 mg PO DAILY 10/19/21 [History] Sertraline [Zoloft] 100 mg PO DAILY 10/19/21 [History] hydrOXYzine pamoate [Hydroxyzine Pamoate] 25 mg PO BEDTIME 10/19/21 [History] lamoTRIgine [LaMICtal] 150 mg PO BID 10/19/21 [History] metFORMIN HCl [Metformin HCl] 1,000 mg PO BID 10/19/21 [History] Past Medical History HEENT History: Reports: Allergic Rhinitis, Impaired Vision Other HEENT History: wears glasses Cardiovascular History: Reports: High Cholesterol Respiratory History: Reports: Asthma, Other (See Below) Other Respiratory History: pleural effusion Gastrointestinal History: Reports: Chronic Constipation Genitourinary History: Reports: Renal Calculus, Urinary Incontinence 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: Reports: Endometriosis Other CELLULAR 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: vaginosis, adenomyosis, nipple discharge Musculoskeletal History: Reports: Back Pain, Chronic Other Musculoskeletal History: degenerative disc disease Neurological History: Reports: Seizure Other Neuro History: EEG done and pt doesn't need to take seizure meds Psychiatric History: Reports: Addiction, Anxiety, Depression Endocrine/Metabolic History: Reports: Diabetes, Type II, Obesity/BMI 30+ Hematologic History: Reports: None Immunologic History: Reports: None Oncologic (Cancer) History: Reports: None Dermatologic History: Reports: None - Infectious Disease History Infectious Disease History: Reports: Chicken Pox, Influenza, Novel Coronavirus - Past Surgical History HEENT Surgical History: Reports: Oral Surgery, Tonsillectomy GI Surgical History: Reports: Appendectomy Female Surgical History: Reports: Hysterectomy, Tubal Ligation Musculoskeletal Surgical History: Reports: Other (See Below) Other Musculoskeletal Surgeries/Procedures:: surgery on both feet Social & Family History - Family History Family Medical History: No Pertinent Family History - Tobacco Use Tobacco Use Status *Q: Never Tobacco User Second Hand Smoke Exposure: No - Caffeine Use Caffeine Use: Reports: Coffee - Recreational Drug Use Recreational Drug Use: Yes Drug Use in Last 12 Months: Yes Recreational Drug Type: Reports: Marijuana/Hashish - Living Situation & Occupation Living situation: Reports: , with Significant Other (Fiance), with Family (Son) Occupation: Employed ([employer]) Review of Systems - Review of Systems Review Of Systems: Comprehensive ROS is negative, except as noted in HPI. ED EXAM, GENERAL - Physical Exam Exam: See Below Exam Limited By: No Limitations General Appearance: Alert, WD/WN, No Apparent Distress Ears: Normal External Exam, Hearing Grossly Normal Nose: Normal Inspection Throat/Mouth: Normal Inspection, Normal Lips, Normal Voice, No Airway Compromise Head: Atraumatic, Normocephalic Neck: Normal Inspection, Supple Respiratory/Chest: No Respiratory Distress, No Accessory Muscle Use Cardiovascular: Normal Peripheral Pulses, Regular Rate, Rhythm Peripheral Pulses: 2+: Radial (L), Radial (R) GI/Abdominal: No Distention (Female) Exam: Deferred Rectal (Female) Exam: Deferred Back Exam: Normal Inspection Extremities: Normal Inspection, No Pedal Edema, Normal Capillary Refill, Limited Range of Motion (To right knee due to pain). No: Non-Tender (To the right anterior patella along right medial patella and in posterior popliteal area.) Neurological: Alert, Oriented, Normal Cognition Psychiatric: Normal Affect, Normal Mood Skin Exam: Warm, Dry, Intact, Normal Color, No Rash Lymphatic: No Adenopathy Course - Vital Signs Text/Narrative:: Stated above, patient presents with right knee pain that occurred from stepping out of her pickup 5 days ago. Unable to complete full physical exam due to patient unable to tolerate range of motion activities. Patient does have pain noted over the kneecap with palpation. Patient also has pain located along the medial patellar area with palpation. She states she has pain noted along the entire popliteal area. Unable to tolerate minimal palpation due to discomfort. Will obtain an x-ray of the right knee. Patient will also be medicated with Dilaudid IM. Last Recorded V/S: Last Vital Signs Temp 96.8 F L 10/19/21 16:05 Pulse 86 10/19/21 16:05 Resp 18 10/19/21 16:05 BP 145/86 H 10/19/21 16:05 Pulse Ox 100 10/19/21 16:05 - Orders/Labs/Meds Orders: Active Orders 24 hr Category Date Time Status Vaccine to be Administered/Admin Charge [RC] ASDIRECTED Care 10/19/21 16:23 Active Knee Min 4V Rt [CR] Stat Exams 10/19/21 17:37 Taken DME for Discharge [COMM] Stat Oth 10/19/21 18:40 Ordered Meds: Medications Discontinued Medications Generic Name Dose Route Start Last Admin Trade Name Freq PRN Reason Stop Dose Admin Hydromorphone HCl 1 mg 10/19/21 18:06 10/19/21 18:17 Hydromorphone 1 Mg/Ml Syringe IM 10/19/21 18:07 1 mg ONETIME ONE Administration Influenza Virus Vaccine 1 each 10/19/21 16:23 Pharmacy To Dose - Influenza Vaccine IM 10/19/21 16:24 ONETIME ONE Influenza Virus Vaccine 60 mcg 10/19/21 16:30 10/19/21 16:36 Flu Vacc [id number] 36mos Up/Pf 60 Mcg/0.5 Ml Syringe IM 10/19/21 16:31 60 mcg .ONCE ONE Administration - Re-Assessments/Exams Free Text/Narrative Re-Assessment/Exam: 10/19/21 18:42 Nothing acute is appreciated on four view of right knee. Formal radiologist report is pending. Patient will be placed into a knee immobilizer to prevent further injury or pain and she will need to follow-up with Dr. Jang, orthopedic surgeon at his next available appointment. Departure - Departure Time of Disposition: 18:44 Disposition: Home, Self-Care 01 Condition: Good Clinical Impression: Knee pain, right Qualifiers: Chronicity: acute Qualified Code(s): M25.561 - Pain in right knee - Discharge Information Instructions: Acute Knee Pain, Adult, How to Use a Knee Immobilizer, [id number] Referrals: Horacio Washington PA-C [Primary Care Provider] - Forms: ED Department Discharge Additional Instructions: You were seen in the emergency department today with complaints of right knee pain that started approximately 5 days ago when stepping out of your pickup truck. X-rays were completed which do not show any acute fractures. You likely do have injury to your tendons and ligaments in that area. You will be placed into a knee immobilizer. This should be worn at all times during the day and may be taken off at night. Continue taking Tylenol 650 mg every 4 hours or ibuprofen 600 mg every 6-8 hours as needed for the discomfort. You will need to follow-up with Dr. Jang, orthopedic surgeon at [facility]. You will need to call and schedule your own appointment. Phone number is [phone]. Sepsis Event Note (ED) - Evaluation Sepsis Screening Result: No Definite Risk - Focused Exam Vital Signs: Vital Signs Temp Pulse Resp BP Pulse Ox 10/19/21 16:05 96.8 F L 86 18 145/86 H 100 - My Orders Last 24 Hours: My Active Orders 10/19/21 16:23 Vaccine to be Administered/Admin Charge [RC] ASDIRECTED 10/19/21 17:37 Knee Min 4V Rt [CR] Stat 10/19/21 18:40 DME for Discharge [COMM] Stat - Assessment/Plan Last 24 Hours: My Active Orders 10/19/21 16:23 Vaccine to be Administered/Admin Charge [RC] ASDIRECTED 10/19/21 17:37 Knee Min 4V Rt [CR] Stat 10/19/21 18:40 DME for Discharge [COMM] Stat
--- NOTE | 2021-10-19 19:07 | CR ---
Right knee: 4 views of the right knee were obtained. Comparison: No prior right knee study is available. Small osteophytes are noted medially. Medial and lateral joint compartments are fairly well preserved. No joint effusion is seen. No fracture or other bony abnormality is seen. Impression: 1. Small osteophytes off the medial joint. 2. Nothing acute is otherwise seen on right knee exam. Diagnostic code #2
== END 2021-10-19 18:56 | disposition home or self-care (01) ==
LOC: JD.ED 15:44
DX: M25.561 Pain in right knee (principal); E78.00 Pure hypercholesterolemia, unspecified; J45.909 Unspecified asthma, uncomplicated; E11.9 Type 2 diabetes mellitus without complications; E66.9 Obesity, unspecified; Z68.41 Body mass index [BMI] 40.0-44.9, adult; Z23 Encounter for immunization; Z86.16 Personal history of COVID-19; Z91.030 Bee allergy status; Z88.8 Allergy status to other drugs, medicaments and biological substances; Z79.84 Long term (current) use of oral hypoglycemic drugs; Z79.899 Other long term (current) drug therapy
CPT/HCPCS: 73564; 90471; 90686; 99283; J1170; 96372; G0008

== ENCOUNTER 2021-11-21 13:39 | Emergency (ER) | payer OTHER, MEDICAID ==
[2021-11-21] MEDS ORDERED: Ketorolac 30 MG/ML SDV IM ONE (13:56)
--- NOTE | 2021-11-21 13:59 | EDM.PDOC ---
ED HPI GENERAL MEDICAL PROBLEM - General Chief Complaint: Lower Extremity Injury/Pain Stated Complaint: RT ANKLE INJURY Time Seen by Provider: 11/21/21 13:50 Source of Information: Reports: Patient, RN Notes Reviewed History Limitations: Reports: No Limitations - History of Present Illness INITIAL COMMENTS - FREE TEXT/NARRATIVE: Patient is a 41-year-old female who presents to the ER for right ankle injury. States that she was at work, carrying something out of the cooler, when she believes she tripped over something and missed her step, and ended up rolling her right ankle. States that she is having quite a bit of pain on her right lateral ankle. Has not been able to put much weight on it at all due to the pain. Range of motion is limited due to the pain she is having. She is not take anything for pain prior to coming to the ER. States that her toes feel little tingly but other than that no obvious numbness or tingling and she has had no prior injury to this area. Patient denies any other sick-like symptoms, fever/chills, cough/shortness of breath, nausea/vomiting/diarrhea. Right Ankle Pain Score (Numeric/FACES): 5 - Related Data Allergies Allergy/AdvReac Type Severity Reaction Status Date / Time bee venom protein (honey bee) Allergy Severe Airway Verified 11/21/21 13:53 Tightness pseudoephedrine AdvReac Mild Drowsiness Verified 11/21/21 13:53 [From DayQuil Sinus Pressure/Pain] Home Meds: Home Meds Albuterol Sulfate [Proair Hfa] 1 puff IH ASDIRECTED PRN 10/19/21 [History] Rosuvastatin [Crestor] 10 mg PO DAILY 10/19/21 [History] Sertraline [Zoloft] 100 mg PO DAILY 10/19/21 [History] hydrOXYzine pamoate [Hydroxyzine Pamoate] 25 mg PO BEDTIME 10/19/21 [History] lamoTRIgine [LaMICtal] 150 mg PO BID 10/19/21 [History] metFORMIN HCl [Metformin HCl] 1,000 mg PO BID 10/19/21 [History] Hydrocodone/Acetaminophen [HYDROcodone-Acetaminophen 5-325 MG] 1 each PO Q6H PRN #12 tablet 11/21/21 [Rx] Past Medical History HEENT History: Reports: Allergic Rhinitis, Impaired Vision Other HEENT History: wears glasses Cardiovascular History: Reports: High Cholesterol Respiratory History: Reports: Asthma, Other (See Below) Other Respiratory History: pleural effusion Gastrointestinal History: Reports: Chronic Constipation Genitourinary History: Reports: Renal Calculus, Urinary Incontinence 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 CLERK History: Reports: Endometriosis Other AUTOMATION CLERK History: vaginosis, adenomyosis, nipple discharge Musculoskeletal History: Reports: Back Pain, Chronic Other Musculoskeletal History: degenerative disc disease Neurological History: Reports: Seizure Other Neuro History: EEG done and pt doesn't need to take seizure meds Psychiatric History: Reports: Addiction, Anxiety, Depression Endocrine/Metabolic History: Reports: Diabetes, Type II, Obesity/BMI 30+ Hematologic History: Reports: None Immunologic History: Reports: None Oncologic (Cancer) History: Reports: None Dermatologic History: Reports: None - Infectious Disease History Infectious Disease History: Reports: Chicken Pox, Influenza, Novel Coronavirus - Past Surgical History Head Surgeries/Procedures: Reports: None HEENT Surgical History: Reports: Oral Surgery, Tonsillectomy Cardiovascular Surgical History: Reports: None Respiratory Surgical History: Reports: None GI Surgical History: Reports: Appendectomy Female Surgical History: Reports: Hysterectomy, Tubal Ligation Endocrine Surgical History: Reports: None Neurological Surgical History: Reports: None Musculoskeletal Surgical History: Reports: Other (See Below) Other Musculoskeletal Surgeries/Procedures:: surgery on both feet Oncologic Surgical History: Reports: None Dermatological Surgical History: Reports: None Social & Family History - Family History Family Medical History: No Pertinent Family History - Tobacco Use Tobacco Use Status *Q: Never Tobacco User Second Hand Smoke Exposure: No - Caffeine Use Caffeine Use: Reports: Coffee - Recreational Drug Use Recreational Drug Use: No - Living Situation & Occupation Living situation: Reports: , with Significant Other (Fiance), with Family (Son) Occupation: Employed ([employer]) Review of Systems - Review of Systems Review Of Systems: Comprehensive ROS is negative, except as noted in HPI. ED EXAM, GENERAL - Physical Exam Exam: See Below Exam Limited By: No Limitations General Appearance: Alert, WD/WN, No Apparent Distress Respiratory/Chest: No Respiratory Distress, Lungs Clear, Normal Breath Sounds, No Accessory Muscle Use, Chest Non-Tender Cardiovascular: Normal Peripheral Pulses, Regular Rate, Rhythm, No Edema Extremities: Normal Inspection, Normal Capillary Refill, Limited Range of Motion (of right ankle d/t pain) Neurological: Alert, Oriented, Normal Cognition, No Motor/Sensory Deficits Psychiatric: Normal Affect, Normal Mood Skin Exam: Warm, Dry, Intact, Normal Color, No Rash Course - Vital Signs Last Recorded V/S: Last Vital Signs Temp 98.6 F 11/21/21 13:51 Pulse 89 11/21/21 13:51 Resp 20 11/21/21 13:51 BP 167/104 H 11/21/21 13:51 Pulse Ox 100 11/21/21 13:51 - Orders/Labs/Meds Orders: Active Orders 24 hr Category Date Time Status Ankle Min 3V Rt [CR] Stat Exams 11/21/21 13:51 Ordered DME for Discharge [COMM] Stat Oth 11/21/21 15:07 Ordered Elastic Wrap [OM.PC] Routine Oth 11/21/21 15:07 Ordered Meds: Medications Discontinued Medications Generic Name Dose Route Start Last Admin Trade Name Freq PRN Reason Stop Dose Admin Ketorolac Tromethamine 30 mg 11/21/21 13:56 Ketorolac 30 Mg/Ml Sdv IM 11/21/21 13:57 ONETIME ONE - Re-Assessments/Exams Free Text/Narrative Re-Assessment/Exam: 11/21/21 13:58 Patient presents to the ER for right ankle injury. X-rays will be performed; patient will get a 30 mg injection of Toradol for initial pain management. 11/21/21 15:08 X-rays were obtained and reviewed by myself and Dr. Aaron. No acute fractures or other bony abnormalities are appreciated. I did go to reassess the patient and she states that she tried to get up at the bedside, and states is still very painful to walk on the ankle. We will go ahead and discharge her home with crutches to remain nonweightbearing for the next few days. She will be put on light duty, at least until Wednesday and I will give her a few tablets of stronger pain medication for over the weekend. Patient verbalized understanding this plan. Departure - Departure Time of Disposition: 15:09 Disposition: Home, Self-Care 01 Condition: Good Clinical Impression: Moderate right ankle sprain Qualifiers: Encounter type: initial encounter Qualified Code(s): S93.401A - Sprain of unspecified ligament of right ankle, initial encounter - Discharge Information *PRESCRIPTION DRUG MONITORING PROGRAM REVIEWED*: Yes *COPY OF PRESCRIPTION DRUG MONITORING REPORT IN PATIENT AMERICO: No Instructions: Ankle Sprain, [id number] Referrals: Horacio Washington PA-C [Primary Care Provider] - Forms: ED Department Discharge, ED Return to Work/School Form Additional Instructions: You have been evaluated in the ED for your right ankle injury. Your x-ray demonstrated no acute fractures or other bony abnormalities, is likely that you have a moderate ankle sprain as a result of your injury today. Please use ice as tolerated to the affected area. You may elevate the affected area to provide further relief from swelling. Please apply the Adiel wrap as needed for further stabilization of the joint. You may want to try to obtain a stirrup type ankle brace, and any pharmacy or other retail provider to provide lateral stabilization of your ankle. You have been given crutches as well to remain nonweightbearing for the next few days, when the pain should be at its worst. This should get better in a few days. You may take Tylenol 500 mg or ibuprofen 600mg q6 hrs for pain relief. Please do so until you have a tolerable level of pain with activity. Do not exceed 4000mg Tylenol, Do not exceed 3200mg ibuprofen in a 24 hour time period. You were given a prescription for a strong pain medication, hydrocodone/acetaminophen 5/325, please take 1 tab every 6 hours as needed for pain not relieved by Tylenol or ibuprofen alone. Please note this does contain Tylenol in it, so do not take more than 4000 mg in a 24-hour time span. These medications can be addictive, so please take as few as possible to achieve adequate pain control. These meds can also be quite constipating, recommend that you increase your oral fluid intake and take a stool softener like MiraLAX while taking these medications. This medication was electronically sent to the [place] pharmacy located in the [facility] grocery store. Please return to ED if your symptoms should change or worsen. Sepsis Event Note (ED) - Focused Exam Vital Signs: Vital Signs Temp Pulse Resp BP Pulse Ox 11/21/21 13:51 98.6 F 89 20 167/104 H 100 - My Orders Last 24 Hours: My Active Orders 11/21/21 13:51 Ankle Min 3V Rt [CR] Stat 11/21/21 15:07 DME for Discharge [COMM] Stat Elastic Wrap [OM.PC] Routine - Assessment/Plan Last 24 Hours: My Active Orders 11/21/21 13:51 Ankle Min 3V Rt [CR] Stat 11/21/21 15:07 DME for Discharge [COMM] Stat Elastic Wrap [OM.PC] Routine
--- NOTE | 2021-11-22 10:57 | CR ---
Right ankle: 3 views of the right ankle were obtained. Comparison: No prior right ankle study is available. Ankle mortise is symmetric. Plate and screws are identified within the hindfoot as well as within the tarsal metatarsal joints. No fracture, dislocation or other bony abnormality is seen. Good lateral view was not obtained. Impression: 1. Prior surgery. 2. No good lateral view was obtained. 3. No definite acute abnormality is appreciated. Diagnostic code #2
== END 2021-11-21 15:29 | disposition home or self-care (01) ==
LOC: JD.ED 13:39
DX: S93.401A Sprain of unspecified ligament of right ankle, initial encounter (principal); E78.00 Pure hypercholesterolemia, unspecified; E11.9 Type 2 diabetes mellitus without complications; E66.9 Obesity, unspecified; Z68.30 Body mass index [BMI] 30.0-30.9, adult; Z88.8 Allergy status to other drugs, medicaments and biological substances; Z79.899 Other long term (current) drug therapy; Z79.84 Long term (current) use of oral hypoglycemic drugs; Z91.030 Bee allergy status; X50.1XXA Overexertion from prolonged static or awkward postures, initial encounter; Y99.0 Civilian activity done for income or pay
CPT/HCPCS: 73610-26-RT; 73610-RT; 99283-25

== ENCOUNTER 2022-06-17 09:22 | Day surgery (SDC) | payer OTHER, MEDICAID ==
[~2022-06-17 09:22] MED LIST changes: +Sodium Chloride 0.9% 10 ML Syringe FLUSH SCH
[2022-06-17] MEDS ORDERED: EPINEPHrine 1 MG/ML 30 ML MDV IRR SCH (11:00)
[2022-06-17] MEDS ORDERED: Propofol 200 MG/20 ML SDV ONE (11:10)
[2022-06-17] MEDS ORDERED: ceFAZolin 2 GM Vial ONE ×2 (11:10→11:16)
[2022-06-17] MEDS ORDERED: Ondansetron 4 MG/2 ML SDV ONE (11:10)
[2022-06-17] MEDS ORDERED: Lidocaine 1% 4 ML ONE (11:11)
[2022-06-17] MEDS ORDERED: fentaNYL 100 MCG/2 ML SDV ONE (11:11)
[2022-06-17] MEDS ORDERED: Midazolam 1 MG/ML 2 ML SDV ONE (11:11)
[2022-06-17] MEDS ORDERED: Rocuronium 50 MG/5 ML Vial ONE (11:11)
[2022-06-17] MEDS ORDERED: fentaNYL 250 MCG/5 ML SDV ONE (11:14)
[2022-06-17] MEDS ORDERED: Bupivacaine 0.25% 10 ML SDV ONE (11:49)
[2022-06-17] MEDS ORDERED: Neostigmine Methylsulfate 10 MG/10 ML MDV ONE (12:36)
[2022-06-17] MEDS ORDERED: Lactated Ringers 1,000 ML ONE (12:40)
[2022-06-17] MEDS ORDERED: Ketorolac 30 MG/ML SDV ONE (12:47)
[2022-06-17] MEDS ORDERED: HYDROmorphone 0.5 MG/0.5 ML Syringe IVPUSH PRN (13:18)
[2022-06-17] MEDS ORDERED: fentaNYL 100 MCG/2 ML SDV IVPUSH PRN (13:18)
[2022-06-17] MEDS ORDERED: Ondansetron 4 MG/2 ML SDV IVPUSH PRN (13:18)
== END 2022-06-17 15:27 | disposition home or self-care (01) ==
LOC: JD.SDS 09:22
PROVIDERS: ATTEND Orthopaedic Surgery
DX: M17.11 Unilateral primary osteoarthritis, right knee (principal); M22.41 Chondromalacia patellae, right knee; E66.9 Obesity, unspecified; E78.5 Hyperlipidemia, unspecified; E11.9 Type 2 diabetes mellitus without complications; F41.9 Anxiety disorder, unspecified; F32.A Depression, unspecified; J45.909 Unspecified asthma, uncomplicated; G47.00 Insomnia, unspecified; Z79.51 Long term (current) use of inhaled steroids; Z68.41 Body mass index [BMI] 40.0-44.9, adult; Z79.84 Long term (current) use of oral hypoglycemic drugs; Z79.899 Other long term (current) drug therapy; Z90.49 Acquired absence of other specified parts of digestive tract; Z90.710 Acquired absence of both cervix and uterus; Z98.890 Other specified postprocedural states; Z87.891 Personal history of nicotine dependence
CPT/HCPCS: 29875; J0171; J0690; J1885; J2250; J2405; J2704; J2710; J3010; J3490; J7120; 01400

== ENCOUNTER 2022-06-20 16:40 | Emergency (ER) | payer OTHER, MEDICAID ==
[2022-06-20] MEDS ORDERED: Sodium Chloride 0.9% 10 ML Syringe FLUSH PRN ×2 (17:03→18:26)
[2022-06-20] MEDS ORDERED: HYDROmorphone 0.5 MG/0.5 ML Syringe IVPUSH ONE (17:39)
[2022-06-20] MEDS ORDERED: Sodium Chloride 0.9% 1,000 ML IV STA (17:39)
[2022-06-20] MEDS ORDERED: Ondansetron 4 MG/2 ML SDV IVPUSH ONE (17:39)
[2022-06-20 17:47] LABS: ESTIMATED GFR 115 mL/min (>60)
[2022-06-20] MEDS ORDERED: Iopamidol 612 MG/ML 100 ML Bottle IVPUSH ONE (18:26)
[2022-06-20] MEDS ORDERED: Magnesium Citrate Solution 296 ML Bottle PO ONE (19:12)
== END 2022-06-20 19:22 | disposition home or self-care (01) ==
LOC: JD.ED 16:40
DX: R10.30 Lower abdominal pain, unspecified (principal); E78.00 Pure hypercholesterolemia, unspecified; E11.9 Type 2 diabetes mellitus without complications; E66.9 Obesity, unspecified; Z91.030 Bee allergy status; Z88.8 Allergy status to other drugs, medicaments and biological substances; Z79.84 Long term (current) use of oral hypoglycemic drugs; Z79.82 Long term (current) use of aspirin; Z79.899 Other long term (current) drug therapy; Z86.16 Personal history of COVID-19; Z68.39 Body mass index [BMI] 39.0-39.9, adult
CPT/HCPCS: 36415; 74177; 80053; 81001; 84703; 85025; 86140; 96361; 96374; 96375; 99284; A9270; J1170; J2405; J3490; J7030; Q9967

== ENCOUNTER 2022-10-31 21:34 | Emergency (ER) | payer MEDICAID, OTHER ==
[2022-10-31] MEDS ORDERED: HYDROmorphone 1 MG/ML Syringe IM ONE (22:09)
== END 2022-11-01 00:59 | disposition home or self-care (01) ==
LOC: JD.ED 21:34
DX: S32.2XXA Fracture of coccyx, initial encounter for closed fracture (principal); E78.00 Pure hypercholesterolemia, unspecified; E11.9 Type 2 diabetes mellitus without complications; E66.9 Obesity, unspecified; Z68.41 Body mass index [BMI] 40.0-44.9, adult; Z87.891 Personal history of nicotine dependence; Z91.030 Bee allergy status; Z88.8 Allergy status to other drugs, medicaments and biological substances; Z79.82 Long term (current) use of aspirin; Z79.84 Long term (current) use of oral hypoglycemic drugs; Z79.899 Other long term (current) drug therapy; W00.0XXA Fall on same level due to ice and snow, initial encounter
CPT/HCPCS: 72220; 96372; 99283; J1170

== ENCOUNTER 2024-05-30 08:00 | Day surgery (SDC) | payer MEDICAID, OTHER ==
[~2024-05-30 08:00] MED LIST changes: -Lidocaine 1%/Sod Bicarbonate in NS 8.4% 1 ML Syringe IDERM PRN
[2024-05-30] MEDS: Lactated Ringers 1,000 ML IV SCH (08:40)
[2024-05-30] MEDS ORDERED: Lidocaine 2% 5 ML SDV ONE (09:50)
[2024-05-30] MEDS ORDERED: Propofol 200 MG/20 ML SDV ONE ×2 (09:50→10:13)
[2024-05-30] MEDS ORDERED: Ondansetron 4 MG/2 ML SDV IVPUSH PRN (10:33)
== END 2024-05-30 12:08 | disposition home or self-care (01) ==
LOC: JD.SDS 08:00
PROVIDERS: ATTEND Surgery
DX: K29.50 Unspecified chronic gastritis without bleeding (principal); K63.89 Other specified diseases of intestine; K31.A0 Gastric intestinal metaplasia, unspecified; K20.0 Eosinophilic esophagitis; K59.00 Constipation, unspecified; E78.5 Hyperlipidemia, unspecified; F41.9 Anxiety disorder, unspecified; F32.A Depression, unspecified; E66.01 Morbid (severe) obesity due to excess calories; Z91.030 Bee allergy status; Z79.899 Other long term (current) drug therapy; Z87.891 Personal history of nicotine dependence; Z68.39 Body mass index [BMI] 39.0-39.9, adult
CPT/HCPCS: 43239; 45380; J2704; J3490; J7120; 00813

== ENCOUNTER 2024-08-05 16:45 | Emergency (ER) | payer MEDICAID, OTHER ==
[2024-08-05] MEDS: Lidocaine 1% 10 ML MDV INJECT ONE (18:11)
== END 2024-08-05 18:49 | disposition home or self-care (01) ==
LOC: JD.ED 16:45
DX: S51.812A Laceration without foreign body of left forearm, initial encounter (principal); E78.00 Pure hypercholesterolemia, unspecified; E66.9 Obesity, unspecified; E11.9 Type 2 diabetes mellitus without complications; F17.210 Nicotine dependence, cigarettes, uncomplicated; Z91.030 Bee allergy status; Z88.8 Allergy status to other drugs, medicaments and biological substances; Z79.899 Other long term (current) drug therapy; Z86.16 Personal history of COVID-19; Z90.49 Acquired absence of other specified parts of digestive tract; Z90.710 Acquired absence of both cervix and uterus; Z68.39 Body mass index [BMI] 39.0-39.9, adult; W26.8XXA Contact with other sharp object(s), not elsewhere classified, initial encounter
CPT/HCPCS: 12001; 99282; J3490